=== PATIENT | male | born 1945 | race African-American/Black ===

== ENCOUNTER → 2016-11-21 | Outpatient (CLI) | payer MEDICARE, OTHER ==
[2016-10-26 14:42] VITALS: BP 132/93
[~2016-11-21] MED LIST: ALPR0.5T6 PO; AMLO5TAB2 PO; APIX2.5T PO; ASPI-482 PO; ASPI325T4 PO; EZET10TA3 PO; FAMO-63 PO; FAMO20TA5; FENT1PAT17 TD; FERR-26 PO; FURO-68 PO; INSU100C4 SQ; INSU100I13 SQ; INSU100I17 SQ; INSU100V8 SQ; ISOS30TA PO; ISOS30TA4; ISOS30TA4 PO; LIPA1CAP4 PO; LISI-334 PO; LORA0.5T96 PO; METO-269 PO; METO10TA81 PO; METO50TA10; ONDA8TAB9 PO; OXYC-323 PO; OXYC30TA PO; OXYC30TA64 PO; OXYC5TAB88 PO; PANT40TA3 PO; POTA10CA PO; POTA10TA5 PO; PROC10TA57 PO; SIMV10TA3 PO; SIMV40TA3 PO
[2016-11-21 11:44] LABS: BASO % 0 % (0-3); EOS % 1 % (0-3); HEMATOCRIT 28.9 % (39.0-53.0); HEMOGLOBIN 9.5 g/dL (13.0-17.5); LYMPH # 1.8 x10^3/uL (1.0-4.8); LYMPH % 27 % (24-48); MEAN CORPUSCULAR HEMOGLOBIN 30 pg (25-35); MEAN CORPUSCULAR HGB CONC 33 g/dL (31-37); MEAN CORPUSCULAR VOLUME 92 fL (79-100); MONO % 8 % (0-9); NEUT % 64 % (31-73); PLATELET COUNT 78 x10^3/uL (140-400); RED BLOOD COUNT 3.12 x10^6/uL (4.30-5.70); RED CELL DISTRIBUTION WIDTH 18.7 % (11.5-14.5); WHITE BLOOD COUNT 6.7 x10^3/uL (4.0-11.0)
[2016-11-21 12:04] LABS: ALBUMIN 1.1 g/dL (3.4-5.0); ALBUMIN/GLOBULIN RATIO 0.2 (1.0-1.7); CREATININE 3.1 mg/dL (0.7-1.3); GFR 24.2; POTASSIUM 3.5 mmol/L (3.5-5.1); TOTAL BILIRUBIN 1.4 mg/dL (0.2-1.0); TOTAL PROTEIN 7.9 g/dL (6.4-8.2)
== END | disposition home or self-care (01) ==
LOC: SPEC 11:35
PROVIDERS: ATTEND Specialist
DX: J96.10 Chronic respiratory failure, unspecified whether with hypoxia or hypercapnia (principal); I13.0 Hypertensive heart and chronic kidney disease with heart failure and stage 1 through stage 4 chronic kidney disease, or unspecified chronic kidney disease; N18.3 Chronic kidney disease, stage 3 (moderate); I50.32 Chronic diastolic (congestive) heart failure
CPT/HCPCS: 36415; 80053; 85027

== ENCOUNTER → 2016-11-26 | Outpatient (CLI) | payer MEDICARE, OTHER ==
[2016-10-26 14:42] VITALS: BP 132/93
[2016-11-26 11:36] LABS: BASO % 0 % (0-3); EOS % 1 % (0-3); HEMATOCRIT 32.3 % (39.0-53.0); HEMOGLOBIN 10.5 g/dL (13.0-17.5); LYMPH # 2.4 x10^3/uL (1.0-4.8); LYMPH % 25 % (24-48); MEAN CORPUSCULAR HEMOGLOBIN 30 pg (25-35); MEAN CORPUSCULAR HGB CONC 32 g/dL (31-37); MEAN CORPUSCULAR VOLUME 93 fL (79-100); MONO % 8 % (0-9); NEUT % 66 % (31-73); PLATELET COUNT 71 x10^3/uL (140-400); RED BLOOD COUNT 3.49 x10^6/uL (4.30-5.70); RED CELL DISTRIBUTION WIDTH 17.7 % (11.5-14.5)
[2016-11-26 11:40] LABS: WHITE BLOOD COUNT 9.6 x10^3/uL (4.0-11.0)
[2016-11-26 11:45] LABS: ALBUMIN 1.2 g/dL (3.4-5.0); ALBUMIN/GLOBULIN RATIO 0.2 (1.0-1.7); CALCIUM 7.3 mg/dL (8.5-10.1); CREATININE 2.8 mg/dL (0.7-1.3); GFR 27.2; POTASSIUM 3.9 mmol/L (3.5-5.1); TOTAL PROTEIN 8.4 g/dL (6.4-8.2)
== END | disposition home or self-care (01) ==
LOC: SPEC 11:16
PROVIDERS: ATTEND Specialist
DX: I13.0 Hypertensive heart and chronic kidney disease with heart failure and stage 1 through stage 4 chronic kidney disease, or unspecified chronic kidney disease (principal); I50.32 Chronic diastolic (congestive) heart failure; J96.11 Chronic respiratory failure with hypoxia; J44.9 Chronic obstructive pulmonary disease, unspecified
CPT/HCPCS: 36415; 80053; 85027

== ENCOUNTER 2016-12-05 17:04 | Inpatient (IN) | payer MEDICARE, OTHER ==
[~2016-12-05] VITALS: Ht 170.2 cm; Wt 77.0 kg
[2016-12-05] MEDS: IPRATRPIUM/ALBUTEROL 0.5/2.5MG 3 ML NEBU. NEB SCH (11:49)
[2016-12-05 18:21] LABS: HCO3 ABG 23 mmol/L (21-28); PCO2 ABG 40 mmHg (35-46); PH ABG 7.38 (7.35-7.45); PO2 ABG 54 mmHg (65-108); SAT O2 ABG 86 % (92-99)
[2016-12-05 18:21] LABS: HCO3 ABG 20 mmol/L (21-28); PCO2 ABG 35 mmHg (35-46); PH ABG 7.37 (7.35-7.45); PO2 ABG 57 mmHg (65-108); SAT O2 ABG 88 % (92-99)
[2016-12-05 18:22] LABS: FIO2 ABG 21
[2016-12-05 18:22] LABS: FIO2 ABG 21
[2016-12-05] MEDS ORDERED: ONDANSETRON PF 4 MG/2 ML VIAL. IV PRN (18:45)
[2016-12-05] MEDS ORDERED: AMLO5TAB2 PO (18:50)
[2016-12-05 19:08] LABS: CALCIUM 7.5 mg/dL (8.5-10.1); CREATININE 4.5 mg/dL (0.7-1.3); GFR 15.8; POTASSIUM 4.6 mmol/L (3.5-5.1)
[2016-12-05 19:14] LABS: ALBUMIN 1.1 g/dL (3.4-5.0); ALBUMIN/GLOBULIN RATIO 0.2 (1.0-1.7); TOTAL BILIRUBIN 1.2 mg/dL (0.2-1.0); TOTAL PROTEIN 8.1 g/dL (6.4-8.2)
[2016-12-05 19:22] LABS: BASO # 0.1 x10^3/uL (0.0-0.2); BASO % 1 % (0-3); EOS % 0 % (0-3); HEMATOCRIT 31.4 % (39.0-53.0); HEMOGLOBIN 10.3 g/dL (13.0-17.5); LYMPH # 2.4 x10^3/uL (1.0-4.8); LYMPH % 30 % (24-48); MEAN CORPUSCULAR HEMOGLOBIN 30 pg (25-35); MEAN CORPUSCULAR HGB CONC 33 g/dL (31-37); MEAN CORPUSCULAR VOLUME 91 fL (79-100); MONO % 11 % (0-9); NEUT % 58 % (31-73); PLATELET COUNT 60 x10^3/uL (140-400); RED BLOOD COUNT 3.45 x10^6/uL (4.30-5.70); RED CELL DISTRIBUTION WIDTH 17.9 % (11.5-14.5); WHITE BLOOD COUNT 8.1 x10^3/uL (4.0-11.0)
--- NOTE | 2016-12-05 19:22 | PHYS DOC ---
Past Medical History Past Medical History: Anemia, Anxiety, Cancer, Diabetes-Type II, GERD, High Cholesterol, Hypertension, Other Additional Past Medical Histor: pancreatic cancer. Past Surgical History: Cholecystectomy, Coronary Bypass Surgery, Other Additional Past Surgical Histo: Rebuilt pancreas. Alcohol Use: None Drug Use: None Adult General Chief Complaint Chief Complaint: SHORTNESS OF BREATH HPI HPI 71-year-old male with multiple medical problems presents secondary to abnormal oxygen saturation at home. Apparently the family checked earlier in the day and his oxygen saturation was in the 70s then checked later it was in the 90s and then checked again and it was in the 80s. They then called the patient's primary care physician who suggested the patient be brought to the emergency department for further evaluation. Patient states that as long as he is still he has really no significant symptoms. He states he does feel more comfortable sitting upright. He denies any chest pain. He has not had any fever chills or sweats. He denies any hemoptysis. [] Review of Systems Review of Systems Constitutional: Denies fever or chills [] Eyes: Denies change in visual acuity, redness, or eye pain [] HENT: Denies nasal congestion or sore throat [] Respiratory: Per history of present illness [] Cardiovascular: No additional information not addressed in HPI [] GI: Denies abdominal pain, nausea, vomiting, bloody stools or diarrhea [] : Denies dysuria or hematuria [] Musculoskeletal: Denies back pain or joint pain [] Integument: Denies rash or skin lesions [] Neurologic: Denies headache, focal weakness or sensory changes [] Endocrine: Denies polyuria or polydipsia [] Current Medications Current Medications Current Medications Medications (Trade) Dose Ordered Sig/Love Start Time Stop Time Status Last Admin Dose Admin Ondansetron HCl (Zofran) 4 mg PRN Q8HRS PRN 12/05/16 18:45 12/06/16 18:44 Allergies Allergies Allergies Coded Allergies Type Severity Reaction Last Updated Verified codeine Allergy Intermediate AMS 10/25/16 Yes Physical Exam Physical Exam Constitutional: Well developed, well nourished, no acute distress, non-toxic appearance. [] HENT: Normocephalic, atraumatic, bilateral external ears normal, oropharynx moist, no oral exudates, nose normal. [] Eyes: PERRLA, EOMI, conjunctiva normal, no discharge. [] Neck: Normal range of motion, no tenderness, supple, no stridor. [] Cardiovascular:Heart rate regular rhythm, no murmur [] Lungs & Thorax: Bilateral breath sounds clear to auscultation [] Abdomen: Bowel sounds normal, soft, no tenderness, no masses, no pulsatile masses. [] Skin: Warm, dry, no erythema, no rash. [] Back: No tenderness, no CVA tenderness. [] Extremities: No tenderness, no cyanosis, no clubbing, ROM intact, no edema. [] Neurologic: Alert and oriented X 3, normal motor function, normal sensory function, no focal deficits noted. [] Psychologic: Affect normal, judgement normal, mood normal. [] Current Patient Data Vital Signs Vital Signs Date Time Temp Pulse Resp B/P Pulse Ox O2 Delivery O2 Flow Rate FiO2 12/05/16 18:40 62 14 128/68 99 Room Air 12/05/16 17:40 2 12/05/16 17:15 98 98.0 Lab Values Laboratory Tests Test 12/05/16 17:46 12/05/16 18:05 12/05/16 18:41 O2 Saturation 86% (92-99) L 88% (92-99) L Arterial Blood pH 7.38 (7.35-7.45) 7.37 (7.35-7.45) Arterial Blood pCO2 at Patient Temp 40mmHg (35-46) 35mmHg (35-46) Arterial Blood pO2 at Patient Temp 54mmHg (65-108) L 57mmHg (65-108) L Arterial Blood HCO3 23mmol/L (21-28) 20mmol/L (21-28) L Arterial Blood Base Excess -2mmol/L (-3-3) -5mmol/L (-3-3) L FiO2 21 21 White Blood Count 8.1x10^3/uL (4.0-11.0) Red Blood Count 3.45x10^6/uL (4.30-5.70) L Hemoglobin 10.3g/dL (13.0-17.5) L Hematocrit 31.4% (39.0-53.0) L Mean Corpuscular Volume 91fL (79-100) Mean Corpuscular Hemoglobin 30pg (25-35) Mean Corpuscular Hemoglobin Concent 33g/dL (31-37) Red Cell Distribution Width 17.9% (11.5-14.5) H Platelet Count 60x10^3/uL (140-400) L Neutrophils (%) (Auto) 58% (31-73) Lymphocytes (%) (Auto) 30% (24-48) Monocytes (%) (Auto) 11% (0-9) H Eosinophils (%) (Auto) 0% (0-3) Basophils (%) (Auto) 1% (0-3) Neutrophils # (Auto) 4.7x10^3uL (1.8-7.7) Lymphocytes # (Auto) 2.4x10^3/uL (1.0-4.8) Monocytes # (Auto) 0.9x10^3/uL (0.0-1.1) Eosinophils # (Auto) 0.0x10^3/uL (0.0-0.7) Basophils # (Auto) 0.1x10^3/uL (0.0-0.2) Sodium Level 141mmol/L (136-145) Potassium Level 4.6mmol/L (3.5-5.1) Chloride Level 109mmol/L (98-107) H Carbon Dioxide Level 26mmol/L (21-32) Anion Gap 6 (6-14) Blood Urea Nitrogen 37mg/dL (8-26) H Creatinine 4.5mg/dL (0.7-1.3) H Estimated GFR (Cockcroft-Gault) 15.8 BUN/Creatinine Ratio 8 (6-20) Glucose Level 126mg/dL (70-99) H Calcium Level 7.5mg/dL (8.5-10.1) L Total Bilirubin 1.2mg/dL (0.2-1.0) H Aspartate Amino Transferase (AST) 64U/L (15-37) H Alanine Aminotransferase (ALT) 23U/L (16-63) Alkaline Phosphatase 89U/L (46-116) Troponin I Quantitative 0.092ng/mL (0.000-0.055) SL-Wfy-[id number]-Type Natriuretic Peptide 5787pg/mL (0-124) H Total Protein 8.1g/dL (6.4-8.2) Albumin 1.1g/dL (3.4-5.0) L Albumin/Globulin Ratio 0.2 (1.0-1.7) L Laboratory Tests 12/05/16 18:41 Laboratory Tests 12/05/16 18:41 EKG EKG [EKG: Atrial flutter rate is [address]-T changes] Radiology/Procedures Radiology/Procedures [] Impressions: Chest x-ray: Pleural effusion on the right there is increased vascular congestion consistent with congestive heart failure as interpreted by me Course & Med Decision Making Course & Med Decision Making Pertinent Labs and Imaging studies reviewed. (See chart for details) [ED course: Evaluation reveals a 71-year-old chronically ill male in no significant distress. Interestingly patient's oxygen saturation is in the 90s however 2 separate blood gases performed at different sites showed a PO2 in the 50s. His chest x-ray was consistent with congestive heart failure and this was reinforced with a BNP of greater than 5000. I spoke with patient's primary care physician who stated that she would like him admitted to the hospital for diuresis and further medical evaluation.] Dragon Disclaimer Dragon Disclaimer This electronic medical record was generated, in whole or in part, using a voice recognition dictation system. Departure Departure Impression: Primary Impression: Congestive heart failure Disposition: ADMITTED INPATIENT Admitting Physician: Other (Dr. Rascon) Condition: GUARDED Referrals: LEISA MIJARES MD (PCP) Problem Qualifiers Primary Impression: Congestive heart failure Congestive heart failure type: unspecified congestive heart failure type Congestive heart failure chronicity: unspecified congestive heart failure chronicity Qualified Code: I50.9 - Heart failure, unspecified JOHN PAUL BERG DO Dec 05, 2016 19:22
[2016-12-05] MEDS ORDERED: FUROSEMIDE 40 MG/4 ML VIAL IVP ONE (19:45)
[2016-12-05] MEDS: IV NORMAL SALINE 1000ML BAG 1,000 ML IV SCH (22:00)
[2016-12-05] MEDS: OXYCODONE IR 30 MG TABLET. PO PRN (22:31)
[2016-12-05 22:38] VITALS: BP 129/74
[2016-12-05] MEDS ORDERED: DEXTROSE 50% 25 GM / 50ML DISP.SYRIN. IV PRN (23:15)
--- NOTE | 2016-12-05 23:29 | ACF ---
Admission Forms Criteria HEART FAILURE: COMMON COMPLICATIONS Clinical Indications for Inpatient Care (Place 'X' for any and all applicable criteria): Ongoing inpatient care may be indicated for heart failure with ANY ONE of the following (1)(2)(3)(4)(5): [ ]I. Ongoing need for care for primary condition requiring frequent therapy adjustments because of changes in cardiac function (eg, drug dosage changes for drugs that are renally metabolized) [ ]II. New-onset heart failure [ ]III. Heart failure with decreased urine output not responsive to attempts to optimize volume status [ ]IV. Acute cardiac ischemia causing or associated with failure [X]V. Complications of heart failure, including ANY ONE of the following: [ ]a) Pericardial effusion [ ]b) Symptomatic pleural effusion [X]c) O2 saturation <90% or PO2 < 60 mm Hg (8.0 kPa) on room air or require baseline supplemental O2 [ ]d) Tachypnea [ ]e) Dyspnea [ ]f) Syncope [ ]g) Change in mental status [ ]h) Acute renal insufficiency that is severe (reduction of more than 50% in estimated glomerular filtration rate from baseline) or progressive reduction of more than 25% in estimated glomerular filtration rate from baseline, with creatinine continuing to rise) [ ]i) Hemodynamic instability [ ]j) Anasarca [ ]k) Clinically significant metabolic abnormalities due to heart failure (eg, new-onset metabolic acidosis) Extended stay beyond goal length of stay for primary condition may be needed until ALL of the following are present(1)(3): [ ]a) Stable and effective diuretic regimen established (or patient on stable dialysis regimen if in chronic renal failure) [ ]b) Breathing comfortably at rest [ ]c) Saturation of arterial oxygen greater than 90% or at acceptable baseline [ ]d) Pulmonary edema absent or improved [ ]e) Hemodynamic stability [ ]f) Volume status acceptable on oral medication [ ]g) Peripheral or sacral edema absent or improved [ ]h) Renal function stable and manageable at a lower level of care [ ]i) Complications (eg, pleural effusion) resolved or manageable at a lower level of care [ ]j) Patient or caregiver has received written discharge instructions or educational material addressing activity level, diet, discharge medications, follow-up appointment, weight monitoring, and what to do if symptoms worsen The original [employer] content created by [employer] has been revised. The portions of the content which have been revised are identified through the use of italic text or in bold, and [facility] has neither reviewed nor approved the modified material.All other unmodified content is copyright [facility]. Please see references footnoted in the original [facility] edition 2016 Admission Criteria Met?: Yes YEMI DIAZ Dec 05, 2016 23:29
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
--- NOTE | 2016-12-06 06:38 | EKG ---
[facility] [address] [place] [address] Test Date: 2016-12-05 Test Time: 17:17:22 Pat Name: WILDER HEAD Department: Room: 534 1 Gender: M Molecular Biologist: : 1945 Requested By: JOHN PAUL BERG Order Number: [id number] Reading MD: Nay Rascon Measurements Intervals [place] Rate: 63 P: NM: QRS: -36 QRSD: 90 T: 110 QT: 448 QTc: 462 Interpretive Statements ATRIAL FLUTTER ABNORMAL LEFT AXIS DEVIATION LEFT ANTERIOR FASCICULAR BLOCK ABNORMAL ECG Electronically Signed On 12-07-2016 0:40:03 SKIN DIVING TEACHER by Nay Rascon
[2016-12-06] MEDS: INSULIN ASPART 300 UNITS/3 ML INSULN.PEN SQ SCH ×3 (07:30→16:30)
[2016-12-06] MEDS: IPRATRPIUM/ALBUTEROL 0.5/2.5MG 3 ML NEBU. NEB SCH ×4 (08:00→20:56)
[2016-12-06 08:24] LABS: HCO3 ABG 24 mmol/L (21-28); PCO2 ABG 40 mmHg (35-46); PO2 ABG 87 mmHg (65-108); SAT O2 ABG 96 % (92-99)
--- NOTE | 2016-12-06 08:26 | RAD ---
Indication difficulty breathing. A single view of the chest was obtained. Comparison is made to an examination 10/25/2016. Postoperative changes are noted. Bipolar cardiac pacing device and a right Port-A-Cath are noted. Heart size is unchanged. There is no gross congestive heart failure. The left lung is clear. There is persistent volume loss in the right lung compatible with pleural fluid. The amount of pleural fluid is probably slightly less than previously. Volume loss at the right lung base likely reflects passive atelectasis associated with the pleural fluid. IMPRESSION: Persistent right pleural effusion with associated volume loss. The left lung appears clear.
[2016-12-06 08:30] LABS: FIO2 ABG 50
--- NOTE | 2016-12-06 08:31 | EKG ---
[facility] [address] [place] [address] Test Date: 2016-12-06 Test Time: 08:12:27 Pat Name: WILDER HEAD Department: Room: 534 1 Gender: M Uat Tester: : 1945 Requested By: MAYRA REYNOLDS Order Number: [id number] Reading MD: Mayra Reynolds Measurements Intervals [place] Rate: 94 P: MS: QRS: -85 QRSD: 176 T: 27 QT: 386 QTc: 489 Interpretive Statements ATRIAL FLUTTER LOW LIMB LEAD VOLTAGE NON SPECIFIC INTRAVENTRICULAR BLOCK QRS(T) CONTOUR ABNORMALITY CONSIDER HIGH LATERAL INFARCT ABNORMAL ECG Electronically Signed On 12-06-2016 23:53:37 MANAGED SERVICES SALES CONSULTANT by Mayra Reynolds
[2016-12-06 09:21] VITALS: BP 133/74
[2016-12-06] MEDS ORDERED: IOHEXOL 240 MG/ML 50ML VIAL. PO ONE (10:30)
[2016-12-06] MEDS ORDERED: CONTRAST GIVEN MC PRN (10:30)
[2016-12-06] MEDS: IV NORMAL SALINE 1000ML BAG 1,000 ML IV SCH (11:20)
[2016-12-06 11:45] VITALS: BP 147/84
[2016-12-06] MEDS: ASPIRIN 81 MG TAB.CHEW PO SCH (12:35)
[2016-12-06] MEDS: ISOSORBIDE MONONITRATE ER 30 MG TAB.ER.24H PO SCH (12:35)
[2016-12-06] MEDS: FERROUS SULFATE 325 MG TABLET PO SCH (12:35)
[2016-12-06] MEDS: FAMOTIDINE 20 MG TABLET. PO SCH (12:35)
--- NOTE | 2016-12-06 14:42 | RAD ---
Indication staging pancreatic malignancy. Axial images through the chest, abdomen and pelvis were obtained. Oral contrast was administered. IV contrast was not. The chest is compared to an examination 10/02/2016. Abdomen and pelvis are compared to an examination 10/03/2016. CT chest: Findings There is diffuse soft tissue swelling compatible with a systemic process such as anasarca. There are bilateral pleural effusions right greater than left. The effusions are larger than on the previous exam. Groundglass opacities seen previously in the right upper lobe has resolved. There is, however, on the current examination a parahilar smaller groundglass opacity in the left upper lobe. A focus of inflammation would be the leading consideration accounting for this appearance. There is some volume loss at the right lung base likely reflecting passive atelectasis associated with the pleural fluid. A dominant soft tissue mass in either lung is not seen. CT abdomen and pelvis: Findings. Similar to the soft tissues of the chest wall there is soft tissue swelling compatible with a systemic process such as anasarca. There is now a significant amount of abdominal ascites much greater than on the previous exam. A definite mass in the liver or spleen is not seen but the study detecting for abdominal masses is limited as no IV contrast was administered. There has been apparent partial pancreatectomy. The adrenal glands appear unremarkable. Occasional right renal cysts are noted. A calcification is noted associated with the right kidney similar to the previous exam. An acute finding in the abdomen or pelvis is not seen. IMPRESSION: Diffuse soft tissue swelling suggesting a systemic process such as anasarca. Resolution of previously seen groundglass opacity in the right upper lobe. There is, however, a small groundglass opacity seen on today's examination in the left upper lobe. This is probably inflammatory in nature. Increasing bilateral pleural effusions right greater than left. Moderately large amount of abdominal ascites. An acute finding in the abdomen or pelvis is not seen PQRS Compliance Statement: One or more of the following individualized dose reduction techniques were utilized for this examination: 1. Automated exposure control 2. Adjustment of the mA and/or kV according to patient size 3. Use of iterative reconstruction technique
[2016-12-06 15:29] VITALS: BP 113/62
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
[2016-12-06 19:15] VITALS: BP 120/66
--- NOTE | 2016-12-06 21:27 | PDOC ---
Provider Note Provider Note 1. False results fom O2 sats of fingers Feep foot warm and use toes 2. Normal systolic function. Drade III diastolic function. 3.Bilateral pleural rffuions ?etiology ?malignant ? hypoalbuminemia ? chronic diastolic CHF 4. Severe malnuitrition Try protein shakes 5.Gastroparesis 6. Chronic kidney disease R/O obstruction See what hydration does but with bhypoalbuminemia IV fluids may not remin in intrascularly May consider diagnostic thoracentesis and/or paracentesis. Will discuss with IR. See no need for Pulm consult I have discudssed hospice with patient and wifeThey know to approach me when they are ready MAYRA REYNOLDS MD Dec 06, 2016 21:27
[2016-12-07] VITALS (7 sets, daily range): BP systolic 105–149; BP diastolic 58–87
[2016-12-07] MEDS: IV NORMAL SALINE 1000ML BAG 1,000 ML IV SCH ×3 (02:08→20:15)
[2016-12-07] MEDS: IPRATRPIUM/ALBUTEROL 0.5/2.5MG 3 ML NEBU. NEB SCH ×4 (07:07→21:57)
[2016-12-07] MEDS: INSULIN ASPART 300 UNITS/3 ML INSULN.PEN SQ SCH ×3 (07:30→17:01)
[2016-12-07 07:45] LABS: CALCIUM 6.8 mg/dL (8.5-10.1); CREATININE 3.7 mg/dL (0.7-1.3); GFR 19.7; POTASSIUM 4.1 mmol/L (3.5-5.1)
[2016-12-07] MEDS: ASPIRIN 81 MG TAB.CHEW PO SCH (09:42)
[2016-12-07] MEDS: FAMOTIDINE 20 MG TABLET. PO SCH (09:42)
[2016-12-07] MEDS: FERROUS SULFATE 325 MG TABLET PO SCH (09:42)
[2016-12-07] MEDS: ISOSORBIDE MONONITRATE ER 30 MG TAB.ER.24H PO SCH (09:43)
--- NOTE | 2016-12-07 13:04 | RAD ---
Gastric emptying nuclear medicine study Clinical indications: Weight loss. Diabetes. Loss of appetite. Technique: After oral ingestion of a solid meal containing 2.0 mCi of technetium 99m sulfur colloid, anterior planar images of the upper abdomen were performed in sequential fashion and a time/activity curve was generated. Half time gastric clearance was measured and calculated. Comparison: None available. Findings: Very little radiotracer activity is seen within the duodenum or proximal small bowel. There is no downward slope of the time/activity curve. Half time clearance had to be extrapolated and is calculated to be 261 minutes. Normal is 45-90 minutes. Therefore, there is a significant delay in gastric emptying. IMPRESSION: Significant delay in gastric emptying.
--- NOTE | 2016-12-07 13:19 | PDOC ---
Provider Note Provider Note UROLOGY: Consult dictated Plan: will start Flomax voiding trial in 48hrs FILIPPO TORRES DO Dec 07, 2016 13:19
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
[2016-12-07] MEDS: OXYCODONE IR 30 MG TABLET. PO PRN (17:09)
--- NOTE | 2016-12-07 20:13 | CARD ---
APPROVED REPORT EXAM: Two-dimensional and M-mode echocardiogram with Doppler and color Doppler. Other Information Quality : Fair INDICATION Aflutter 2D DIMENSIONS RVDd3.7 (2.9-3.5cm)Left Atrium(2D)3.9 (1.6-4.0cm) IVSd1.1 (0.7-1.1cm)Aortic Root(2D)3.1 (2.0-3.7cm) LVDd4.5 (3.9-5.9cm)LVOT Diameter2.0 (1.8-2.4cm) PWd1.0 (0.7-1.1cm)LVDs3.2 (2.5-4.0cm) FS (%) 28.8 %SV50.2 ml LVEF(%)55.7 (>50%) Aortic Valve AoV Peak Km.102.1cm/sAoV VTI18.6cm AO Peak GR.4.2mmHgLVOT VTI 15.44cm AO Mean GR.3mmHgAVA (VTI)2.62cm2 Mitral Valve MV E Zkwwipsa70.2cm/sMV E Peak Gr.4mmHg MV DECEL [id number] MVA (PHT)5.79cm2 Tricuspid Valve TR P. [id number] TR Peak Gr.[id number] LEFT VENTRICLE The left ventricle is normal size. There is borderline concentric left ventricular hypertrophy. Left ventricle systolic function is low normal. The Ejection Fraction is 50-55%. Septal motion consistent with paced rhythm. Transmitral Doppler flow pattern is Grade I-abnormal relaxation pattern. RIGHT VENTRICLE The right ventricle is normal size. The right ventricular systolic function is normal. There is a pac emaker lead in the right ventricle. ATRIA The left atrium size is normal. There is a catheter/pacemaker lead seen in the right atrium. The righ t atrium is mildly dilated. The interatrial septum is intact with no evidence for an atrial septal de fect or patent foramen ovale as noted on 2-D or Doppler imaging. AORTIC VALVE The aortic valve is mildly thickened but opens well. The aortic valve is tri-cuspid. Doppler and [place] r Flow revealed no significant aortic regurgitation. There is no significant aortic valvular stenosis . MITRAL VALVE The mitral valve is mildly thickened but opens well. Mitral annular calcification is mild. There is n o evidence of mitral valve prolapse. There is no mitral valve stenosis. Doppler and Color Flow reveal ed mild mitral regurgitation. TRICUSPID VALVE The tricuspid valve is normal in structure. Doppler and Color Flow revealed mild to moderate tricuspi d regurgitation. There is moderate-severe pulmonary hypertension. The PA pressure was estimated at 60 mmHg. There is no tricuspid valve stenosis. PULMONIC VALVE The pulmonary valve is normal in structure and function. Doppler and Color Flow revealed mild pulmoni c valvular regurgitation. There is no pulmonic valvular stenosis. GREAT VESSELS The aortic root is normal in size. The IVC is borderline dilated and collapses >50% with inspiration. PERICARDIAL EFFUSION There is a trace pericardial effusion. Critical Notification Critical Value: No <Conclusion> The left ventricle is normal size. There is borderline concentric left ventricular hypertrophy. The ejection fraction is normal at 50-55% There is a Grade III diastolic dysfunction with the Ewave decekeration time of 122msecs. There is a trace pericardial effusion. There is no significant aortic valvular stenosis. Doppler and Color Flow revealed no significant aortic regurgitation. There is no mitral valve stenosis. Doppler and Color Flow revealed mild mitral regurgitation. The left atrium is of a normal size The right ventricle is normal Doppler and Color Flow revealed mild to moderate tricuspid regurgitation. There is moderate-severe pulmonary hypertension. The PA pressure was estimated at 60 mmHg There is thus moderate pulmonary hypertension Doppler and Color Flow revealed mild pulmonic valvular regurgitation.
[2016-12-07] MEDS: TAMSULOSIN 0.4 MG CAP.ER.24H. PO SCH (20:15)
[2016-12-07] MEDS: METOCLOPRAMIDE HCL 10 MG/10 ML SOLUTION. PO SCH (20:16)
--- NOTE | 2016-12-07 20:44 | PDOC ---
Provider Note Provider Note Ffers no complaints Urinary retention of 600ccs. post void Finnegan introduced. Imorovement in creatinine probably due to hydration. [place] to ge attributed to bladder drainage. Prolonged GET Srat on Reglan MAYRA REYNOLDS MD Dec 07, 2016 20:44
[2016-12-07] MEDS ORDERED: ALBUMIN HUMAN 5% 250 ML IV ONE (21:00)
[2016-12-08] MEDS ORDERED: DILTIAZEM HCL 30 MG TABLET PO PRN (00:30)
[2016-12-08] MEDS ORDERED: ACETAMINOPHEN 325 MG TABLET. PO PRN (00:30)
[2016-12-08] MEDS ORDERED: METOPROLOL TART IMMED RELEASE 25 MG TABLET PO ONE (01:00)
[2016-12-08] MEDS: OXYCODONE IR 30 MG TABLET. PO PRN (01:05)
[2016-12-08 01:44] LABS: BASO % 0 % (0-3); EOS % 0 % (0-3); HEMATOCRIT 28.4 % (39.0-53.0); HEMOGLOBIN 9.1 g/dL (13.0-17.5); LYMPH # 3.2 x10^3/uL (1.0-4.8); LYMPH % 27 % (24-48); MEAN CORPUSCULAR HEMOGLOBIN 30 pg (25-35); MEAN CORPUSCULAR HGB CONC 32 g/dL (31-37); MEAN CORPUSCULAR VOLUME 93 fL (79-100); MONO % 13 % (0-9); NEUT % 59 % (31-73); PLATELET COUNT 62 x10^3/uL (140-400); RED BLOOD COUNT 3.08 x10^6/uL (4.30-5.70); RED CELL DISTRIBUTION WIDTH 17.9 % (11.5-14.5); WHITE BLOOD COUNT 11.7 x10^3/uL (4.0-11.0)
[2016-12-08 01:48] LABS: ALBUMIN 1.4 g/dL (3.4-5.0); ALBUMIN/GLOBULIN RATIO 0.2 (1.0-1.7); CALCIUM 7.1 mg/dL (8.5-10.1); CREATININE 3.4 mg/dL (0.7-1.3); GFR 21.8; POTASSIUM 4.1 mmol/L (3.5-5.1); TOTAL BILIRUBIN 1.3 mg/dL (0.2-1.0); TOTAL PROTEIN 8.3 g/dL (6.4-8.2)
[2016-12-08 02:00] VITALS: BP 165/96
--- NOTE | 2016-12-08 02:49 | CONS ---
DATE OF CONSULTATION: 12/07/2016 CHIEF COMPLAINT: Post-void urinary retention. HISTORY OF PRESENT ILLNESS: This is a 71-year-old male with multiple medical problems. He was hospitalized due to shortness of breath. During his hospital course, he was found to have large postvoid residual urine volume of about 700 mL. Therefore, catheter was placed. The patient denies any history of prostate problems. He has had no prostate surgery. He does state that at home he has nocturia three times a night. He states he feels like he has a good stream and feels like he empties the bladder completely. PAST MEDICAL HISTORY: Significant for pancreatic cancer, type 2 diabetes, GERD, hypertension. PAST SURGICAL HISTORY: Includes cholecystectomy, coronary artery bypass surgery, biopsies of the pancreas. ALLERGIES: THE PATIENT IS ALLERGIC TO CODEINE. PAST MEDICAL HISTORY: Reviewed and updated. The patient also has a history of abdominal ascites. PHYSICAL EXAMINATION: GENERAL DESCRIPTION: A 71-year-old black male, not a very good historian. He denies any pain or discomfort. ABDOMEN: Obese and compatible with ascites. There is no flank pain to palpation bilaterally. No suprapubic tenderness. GENITALIA: Noncircumcised penis. He has indwelling Finnegan catheter draining mya colored urine. RECTAL: Not performed at this time. MUSCULOSKELETAL: Mild edema of lower extremities. LABORATORY DATA: The patient's hemoglobin 10.3, hematocrit 31.4, platelets are low at 60,000. The patient's most recent BUN is 37, creatinine is 3.7. X-RAY STUDIES: No x-rays pertinent to system. IMPRESSION: 1. Urinary retention-acute versus chronic. 2. Renal failure (chronic kidney disease). 3. Pancreatic cancer. 4. History of hepatitis. PLAN: 1. I have started the patient on Flomax one tablet p.o. at bedtime. 2. After has been on Flomax for approximately two days, I would remove the Finnegan catheter in the morning and give him a voiding trial and follow his postvoid residual urine volumes. 3. If he continues to have problems, then we will schedule him for flexible cystoscopy in the office. Thank you for the opportunity to participate in care of this patient. FILIPPO TORRES DO DR: GAYE/martin JOB#: [id number] / [id number]
[2016-12-08] MEDS: IPRATRPIUM/ALBUTEROL 0.5/2.5MG 3 ML NEBU. NEB SCH ×4 (07:37→18:20)
[2016-12-08 07:53] VITALS: BP 116/70
--- NOTE | 2016-12-08 08:01 | RAD ---
Portable chest, 12/08/2016: History: Shortness of breath, elevated white blood cell count Comparison is made to a study from 12/05/2016. A left-sided transvenous pacemaker is again noted. The right Port-A-Cath extends to the level of the atriocaval junction. There is been a previous median sternotomy. Postsurgical changes are noted in the lower cervical spine. The heart appears to be within normal limits in size. The pulmonary vascularity is at the upper limits of normal. There is a moderate-sized persistent right pleural effusion with underlying right basilar atelectasis/infiltrate. There is a small amount of left-sided pleural fluid. The basilar findings have worsened slightly. There is no evidence of pneumothorax. IMPRESSION: Slight interval worsening of the pleural effusions, right greater than left, with moderate underlying right basilar atelectasis/infiltrate.
[2016-12-08] MEDS: ASPIRIN 81 MG TAB.CHEW PO SCH (09:06)
[2016-12-08] MEDS: ISOSORBIDE MONONITRATE ER 30 MG TAB.ER.24H PO SCH (09:06)
[2016-12-08] MEDS: METOPROLOL SUCC 24HR ER 50 MG TAB.ER.24H. PO SCH (09:06)
[2016-12-08] MEDS: FERROUS SULFATE 325 MG TABLET PO SCH (09:06)
[2016-12-08] MEDS: FAMOTIDINE 20 MG TABLET. PO SCH (09:07)
[2016-12-08] MEDS: METOCLOPRAMIDE HCL 10 MG/10 ML SOLUTION. PO SCH ×4 (09:07→20:56)
[2016-12-08] MEDS: INSULIN ASPART 300 UNITS/3 ML INSULN.PEN SQ SCH ×3 (09:08→16:30)
[2016-12-08 10:42] VITALS: BP 112/78
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
[2016-12-08 13:06] LABS: BILIRUBIN,URINE SMALL (NEG); GLUCOSE,URINE NEGATIVE (NEG); NITRITE,URINE NEGATIVE (NEG); PH,URINE 5.5; PROTEIN,URINE 100 mg/dL (NEG-TRACE)
--- NOTE | 2016-12-08 13:21 | PDOC ---
Provider Note Provider Note Febrile illness with a temp of 100. Source unknown ID cosulted Today he is better and is able tp answer question. Laqst night he was very restless and was unable to answer questions CT Head in 11/03 was unremarkable Very porr appetite He barely ate dinner last night or breakfast this morning Abdomen is distended. Obtain sonogram to evaluate ascites He wishes to be out bed and ambulate. Will request Nursing Staff to help Creat is 3.4 MAYRA REYNOLDS MD Dec 08, 2016 13:21
[2016-12-08 13:24] LABS: BACTERIA,URINE MANY /HPF (0-FEW); RBC,URINE TNTC /HPF (0-2); WBC,URINE TNTC /HPF (0-4)
--- NOTE | 2016-12-08 13:52 | RAD ---
Abdominal ultrasound, 12/08/2016: History: Elevated liver function test The gallbladder is surgically absent. The common hepatic duct is dilated measuring 1.4 cm. No hepatic mass is seen. The pancreatic region is obscured by overlying bowel. There is a given history of previous pancreatic surgery. The spleen is within normal limits in size. There is a 1.7 cm cyst in the right kidney. The lower pole of the right kidney was not fully visualized due to overlying bowel. The left kidney is unremarkable. The aorta and inferior vena cava were largely obscured by bowel. There is a moderate volume of ascites. A similar amount of fluid was visualized on the 12/06/2016 CT study. Small bilateral pleural effusions are also noted. IMPRESSION: 1. Status post cholecystectomy. 2. Enlargement of the common hepatic duct. 3. Small right renal cyst. 4. Moderate volume of ascites. 5. Small bilateral pleural effusions
[2016-12-08 14:39] VITALS: BP 107/68
[2016-12-08] MEDS: DRONABINOL 2.5 MG CAPSULE PO SCH (16:53)
[2016-12-08] MEDS: PIPERACILLIN/TAZOBACTAM 2.25 GM in IV NORMAL SALINE 50ML 50 ML IV SCH ×2 (18:12→21:43)
[2016-12-08 18:54] LABS: OBC FLU VALID
[2016-12-08 19:17] VITALS: BP 111/72
--- NOTE | 2016-12-08 20:15 | PDOC2 ---
NEUROLOGY CONSULT Date of Admission Date of Admission Full Report Dictated DATE: 12/08/16 TIME: 20:13 Current Medications Current Medications Current Medications Ondansetron HCl (Zofran) 4 mg PRN Q8HRS PRN IV NAUSEA/VOMITING; Start 12/05/16 at 18:45; Stop 12/06/16 at 18:45; Status DC Furosemide 80 mg 80 mg 1X ONCE IVP Last administered on 12/05/16 19:55; Start 12/05/16 at 19:45; Stop 12/05/16 at 19:46; Status DC Sodium Chloride (Iv Sodium Chloride 0.9% 1000ml Bag) 1,000 ml @ 75 mls/hr [id number] IV Last administered on 12/07/16 20:15; Start 12/05/16 at 22:00; Stop 12/07/16 at 20:50; Status DC Albuterol/ Ipratropium (Duoneb) 3 ml RTQID NEB Last administered on 12/08/16 18:20; Start 12/05/16 at 23:00 Oxycodone HCl (Roxicodone) 30 mg PRN Q4HRS PRN PO SEVERE PAIN Last administered on 12/08/16 01:05; Start 12/05/16 at 22:15 Aspirin (Children'S Aspirin) 81 mg DAILYWBKFT PO Last administered on 09:06; Start 12/06/16 at 08:00 Famotidine (Pepcid) 20 mg DAILY PO Last administered on 12/08/16 09:07; Start 12/06/16 at 09:00 Ferrous Sulfate (Feosol) 325 mg DAILYWBKFT PO Last administered on 12/08/16 09 :06; Start 12/06/16 at 08:00 Insulin Aspart (Novolog) 6 units TIDAC SQ Last administered on 12/08/16 09:08 ; Start 12/06/16 at 07:30 Isosorbide Mononitrate (Imdur) 30 mg DAILY PO Last administered on 12/08/16 09 :06; Start 12/06/16 at 09:00 Dextrose 12.5 gm PRN Q15MIN PRN IV SEE COMMENTS; Start 12/05/16 at 23:15 Iohexol (Omnipaque 240 Mg/ml) 30 ml 1X ONCE PO Last administered on 12/06/16 11:43; Start 12/06/16 at 10:30; Stop 12/06/16 at 10:31; Status DC Info (Do NOT chart on this entry -- for MONITORING) 1 each PRN DAILY PRN MC SEE COMMENTS; Start 12/06/16 at 10:30; Stop 12/08/16 at 10:29; Status DC Tamsulosin HCl (Flomax) 0.4 mg QHS PO Last administered on 12/07/16 20:15; Start 12/07/16 at 21:00 Metoclopramide HCl 5 mg 5 mg TIDACHC PO Last administered on 12/08/16 16:53; Start 12/07/16 at 21:00 Albumin Human (Plasmanate) 250 ml @ 62.5 mls/hr 1X ONCE IV Last administered on 12/07/16 21:16; Start 12/07/16 at 21:00; Stop 12/08/16 at 00:59; Status DC Acetaminophen (Tylenol) 325 mg PRN Q6HRS PRN PO MILD PAIN / TEMP; Start at 00:30 Metoprolol Tartrate (Lopressor) 25 mg 1X ONCE PO Last administered on 00:59; Start 12/08/16 at 01:00; Stop 12/08/16 at 01:01; Status DC Metoprolol Succinate (Toprol Xl) 50 mg DAILY PO Last administered on 12/08/16 09:06; Start 12/08/16 at 09:00 Diltiazem HCl (Cardizem) 30 mg PRN Q6HRS PRN PO ELEVATED BP, SEE COMMENTS; Start 12/08/16 at 00:30 Dronabinol 2.5 mg 2.5 mg BIDACLD PO Last administered on 12/08/16 16:53; Start 12/08/16 at 16:30 Piperacillin Sod/ Tazobactam Sod/ Sodium Chloride (Zosyn/Iv Sodium Chloride 0.9 % 50ml) 50 ml @ 100 mls/hr Q8HRS IV Last administered on 12/08/16 18:12; Start 12/08/16 at 18:00 Active Scripts Active Lasix (Furosemide) 40 Mg Tablet 1 Tab PO DAILY Reported Amlodipine Besylate 5 Mg Tablet 5 Mg PO DAILY Oxycodone Hcl 30 Mg Tablet 1 Tab PO Q4HRS Isosorbide Mononitrate Er (Isosorbide Mononitrate) 30 Mg Tab.er.24h 1 Tab PO DAILY Pepcid (Famotidine) 20 Mg Tablet 20 Mg PO BID Novolog Flexpen (Insulin Aspart) 100 Unit/1 Ml Insuln.pen 6 Unit SQ TIDAC Percocet 5-325 Mg Tablet (Oxycodone/Acetaminophen) 1 Each Tablet 1 Tab PO Q8HRS PRN Metoprolol Succinate 50 Mg Tab.er.24h Isosorbide Mononitrate Er (Isosorbide Mononitrate) 30 Mg Tab.er.24h 30 Mg Reglan (Metoclopramide Hcl) 10 Mg Tablet 10 Mg PO QIDACHS Toprol Xl (Metoprolol Succinate) 50 Mg Tab.er.24h 1 Tab PO BID Aspir 81 (Aspirin) 81 Mg Tablet.dr 1 Tab PO DAILY Imdur (Isosorbide Mononitrate) 30 Mg Tab.er.24h 30 Mg PO DAILY Ferrous Sulfate 325 Mg Tablet 325 Mg PO DAILY Allergies Allergies: Coded Allergies: codeine (Verified Allergy, Intermediate, AMS, 10/25/16) Vitals VITALS Vital Signs Date Time Temp Pulse Resp B/P Pulse Ox O2 Delivery O2 Flow Rate FiO2 12/08/16 19:24 Nasal Cannula 2.0 12/08/16 14:39 98.5 81 20 107/68 92 98.5 Labs Labs Laboratory Tests Test 12/06/16 20:51 12/07/16 07:24 12/07/16 12:05 12/07/16 16:39 Glucose (Fingerstick) 145mg/dL (70-99) 179mg/dL (70-99) 163mg/dL (70-99) Sodium Level 142mmol/L (136-145) Potassium Level 4.1mmol/L (3.5-5.1) Chloride Level 110mmol/L (98-107) Carbon Dioxide Level 25mmol/L (21-32) Anion Gap 7 (6-14) Blood Urea Nitrogen 37mg/dL (8-26) Creatinine 3.7mg/dL (0.7-1.3) Estimated GFR (Cockcroft-Gault) 19.7 Glucose Level 157mg/dL (70-99) Calcium Level 6.8mg/dL (8.5-10.1) Test 12/07/16 20:10 12/08/16 01:15 12/08/16 07:55 12/08/16 10:48 Glucose (Fingerstick) 118mg/dL (70-99) 150mg/dL (70-99) 99mg/dL (70-99) White Blood Count 11.7x10^3/uL (4.0-11.0) Red Blood Count 3.08x10^6/uL (4.30-5.70) Hemoglobin 9.1g/dL (13.0-17.5) Hematocrit 28.4% (39.0-53.0) Mean Corpuscular Volume 93fL (79-100) Mean Corpuscular Hemoglobin 30pg (25-35) Mean Corpuscular Hemoglobin Concent 32g/dL (31-37) Red Cell Distribution Width 17.9% (11.5-14.5) Platelet Count 62x10^3/uL (140-400) Neutrophils (%) (Auto) 59% (31-73) Lymphocytes (%) (Auto) 27% (24-48) Monocytes (%) (Auto) 13% (0-9) Eosinophils (%) (Auto) 0% (0-3) Basophils (%) (Auto) 0% (0-3) Neutrophils # (Auto) 6.9x10^3uL (1.8-7.7) Lymphocytes # (Auto) 3.2x10^3/uL (1.0-4.8) Monocytes # (Auto) 1.5x10^3/uL (0.0-1.1) Eosinophils # (Auto) 0.0x10^3/uL (0.0-0.7) Basophils # (Auto) 0.0x10^3/uL (0.0-0.2) Sodium Level 143mmol/L (136-145) Potassium Level 4.1mmol/L (3.5-5.1) Chloride Level 109mmol/L (98-107) Carbon Dioxide Level 19mmol/L (21-32) Anion Gap 15 (6-14) Blood Urea Nitrogen 35mg/dL (8-26) Creatinine 3.4mg/dL (0.7-1.3) Estimated GFR (Cockcroft-Gault) 21.8 BUN/Creatinine Ratio 10 (6-20) Glucose Level 143mg/dL (70-99) Calcium Level 7.1mg/dL (8.5-10.1) Total Bilirubin 1.3mg/dL (0.2-1.0) Aspartate Amino Transf (AST/SGOT) 68U/L (15-37) Alanine Aminotransferase (ALT/SGPT) 20U/L (16-63) Alkaline Phosphatase 95U/L (46-116) Total Protein 8.3g/dL (6.4-8.2) Albumin 1.4g/dL (3.4-5.0) Albumin/Globulin Ratio 0.2 (1.0-1.7) Procalcitonin 1.13ng/mL (0.00-0.10) Test 12/08/16 12:30 12/08/16 16:52 12/08/16 17:50 Urine Collection Type Unknown Urine Color Elena Urine Clarity Cloudy Urine pH 5.5 Urine Specific [place] 1.020 Urine Protein 100mg/dL (NEG-TRACE) Urine Glucose (UA) Negativemg/dL (NEG) Urine Ketones (Stick) Negativemg/dL (NEG) Urine Blood Large (NEG) Urine Nitrite Negative (NEG) Urine Bilirubin Small (NEG) Urine Urobilinogen Dipstick 1.0mg/dL (0.2 mg/dL) Urine Leukocyte Esterase Large (NEG) Urine RBC Tntc/HPF (0-2) Urine WBC Tntc/HPF (0-4) Urine Bacteria Many/HPF (0-FEW) Urine Hyaline Casts Many/HPF Glucose (Fingerstick) 91mg/dL (70-99) Influenza Type A Antigen Negative (NEGATIVE) Influenza Type B Antigen Negative (NEGATIVE) Laboratory Tests Test 12/08/16 01:15 12/08/16 07:55 12/08/16 10:48 12/08/16 12:30 White Blood Count 11.7x10^3/uL (4.0-11.0) Red Blood Count 3.08x10^6/uL (4.30-5.70) Hemoglobin 9.1g/dL (13.0-17.5) Hematocrit 28.4% (39.0-53.0) Mean Corpuscular Volume 93fL (79-100) Mean Corpuscular Hemoglobin 30pg (25-35) Mean Corpuscular Hemoglobin Concent 32g/dL (31-37) Red Cell Distribution Width 17.9% (11.5-14.5) Platelet Count 62x10^3/uL (140-400) Neutrophils (%) (Auto) 59% (31-73) Lymphocytes (%) (Auto) 27% (24-48) Monocytes (%) (Auto) 13% (0-9) Eosinophils (%) (Auto) 0% (0-3) Basophils (%) (Auto) 0% (0-3) Neutrophils # (Auto) 6.9x10^3uL (1.8-7.7) Lymphocytes # (Auto) 3.2x10^3/uL (1.0-4.8) Monocytes # (Auto) 1.5x10^3/uL (0.0-1.1) Eosinophils # (Auto) 0.0x10^3/uL (0.0-0.7) Basophils # (Auto) 0.0x10^3/uL (0.0-0.2) Sodium Level 143mmol/L (136-145) Potassium Level 4.1mmol/L (3.5-5.1) Chloride Level 109mmol/L (98-107) Carbon Dioxide Level 19mmol/L (21-32) Anion Gap 15 (6-14) Blood Urea Nitrogen 35mg/dL (8-26) Creatinine 3.4mg/dL (0.7-1.3) Estimated GFR (Cockcroft-Gault) 21.8 BUN/Creatinine Ratio 10 (6-20) Glucose Level 143mg/dL (70-99) Calcium Level 7.1mg/dL (8.5-10.1) Total Bilirubin 1.3mg/dL (0.2-1.0) Aspartate Amino Transf (AST/SGOT) 68U/L (15-37) Alanine Aminotransferase (ALT/SGPT) 20U/L (16-63) Alkaline Phosphatase 95U/L (46-116) Total Protein 8.3g/dL (6.4-8.2) Albumin 1.4g/dL (3.4-5.0) Albumin/Globulin Ratio 0.2 (1.0-1.7) Procalcitonin 1.13ng/mL (0.00-0.10) Glucose (Fingerstick) 150mg/dL (70-99) 99mg/dL (70-99) Urine Collection Type Unknown Urine Color Elena Urine Clarity Cloudy Urine pH 5.5 Urine Specific [place] 1.020 Urine Protein 100mg/dL (NEG-TRACE) Urine Glucose (UA) Negativemg/dL (NEG) Urine Ketones (Stick) Negativemg/dL (NEG) Urine Blood Large (NEG) Urine Nitrite Negative (NEG) Urine Bilirubin Small (NEG) Urine Urobilinogen Dipstick 1.0mg/dL (0.2 mg/dL) Urine Leukocyte Esterase Large (NEG) Urine RBC Tntc/HPF (0-2) Urine WBC Tntc/HPF (0-4) Urine Bacteria Many/HPF (0-FEW) Urine Hyaline Casts Many/HPF Test 12/08/16 16:52 12/08/16 17:50 Glucose (Fingerstick) 91mg/dL (70-99) Influenza Type A Antigen Negative (NEGATIVE) Influenza Type B Antigen Negative (NEGATIVE) Assessment/Plan Assessment/Plan Cassius Mckeon is a pleasant 71-year-old man with a complex medical history including pancreatic cancer diagnosed 3 years ago, coronary artery disease, chronic renal failure, liver disease, ascites, pleural effusions and encephalopathy. The neurologic exam revealed the possibility of a right visual field loss. There was drooping of the right face and rest but not with activation. I would like to rule out stroke with a CT scan of the head without contrast. He has a urinary tract infection which may be contributing to the encephalopathy. BREA BEARD MD Dec 08, 2016 20:15
[2016-12-08] MEDS: TAMSULOSIN 0.4 MG CAP.ER.24H. PO SCH (20:57)
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
[2016-12-08 23:15] VITALS: BP 121/73
--- NOTE | 2016-12-09 00:05 | CONS ---
DATE OF CONSULTATION: 12/08/2016 REFERRING PHYSICIAN: Dr. Rascon. REASON FOR CONSULTATION: Altered mental status. HISTORY OF PRESENT ILLNESS: The patient is a 71-year- old man with an extremely complex medical history. This is obtained through the medical records, which I reviewed. He was diagnosed with pancreatic cancer 3 years ago, undergoing chemotherapy with Gemzar. He reached his tolerance and had to stop this mid last year. He has had other chemotherapy including cyclosporine, but it was discontinued because of renal failure. He has also had some worsening renal function and congestive heart failure. He has had elevated liver enzymes as well. The renal failure is starting to improve and the liver enzymes are normalizing. Cancer markers are actually improving. He cannot have a contrasted study because of chronic renal failure, so by the CAT scan which is suboptimal of his abdomen and pelvis, there has been no definite recurrence or progression of his disease. There is no reported history of stroke. He does have coronary artery disease having undergone 5-vessel bypass surgery. He has also had atrial flutter about a year ago. He was not converted. I am asked to evaluate because there has been a change in his mental status or he is very confused and sleepy. In review of records, this occurred late last year as well and resolved. PAST MEDICAL HISTORY: 1. Coronary artery disease, status post bypass surgery. 2. Pancreatic cancer diagnosed 3 years ago. 3. Pulmonary fibrosis possibly from chemotherapy. 5. Chronic renal failure. 6. Chronic pain for which he is maintained on chronic narcotic analgesics. 7. Diabetes. 8. History of atrial flutter. 9. Hypoxemia or hypoxia. ALLERGIES: CODEINE. MEDICATIONS PRIOR TO ADMISSION: Include amlodipine 5 mg, aspirin 81 mg, Famotidine 20 mg twice per day, iron sulfate 325 mg, Lasix 40 mg twice a day, Imdur 30 mg twice per day, metoprolol 50 mg twice per day, oxycodone 30 mg every 4 hours, NovoLog insulin and Lantus. He was having episodes of hypoglycemia, so Lantus was discontinued. SOCIAL HISTORY: He is . He is retired. He has children and grandchildren. He does not smoke tobacco, drink alcohol or use recreational drugs. FAMILY HISTORY: Pertinent for coronary artery disease. REVIEW OF SYSTEMS: The patient is not able to give review of systems. Family members are not available. PHYSICAL EXAMINATION: VITAL SIGNS: The blood pressure was 107/68, pulse 81, respirations 20, temperature 98.5 degrees Fahrenheit. Oximetry was 92% on 2 liters nasal cannula. His weight was 173.4 pounds, height 67 inches with a calculated body mass index of 27.2. GENERAL: He was sitting in a reclining chair, initially sleeping. He awoke easily and his eyes remained open. He eyes did not focus well. He was not able to answer any questions, although acted like he was thinking about the answer, but never cane to it. He was able to follow some commands, but had difficulty with focus. Attention and concentration were extremely impaired. He was not oriented in the slightest. He appeared well groomed and well nourished. NEUROLOGIC: Examination of the cranial nerves revealed visual barnes responded to threat. He blinked better on his left visual field than the right. Extraocular movements were intact. At times the eyes were disconjugate with left eye drifting outward. He was able to follow my finger. Facial sensation was intact. Muscles of mastication were powerful symmetrically. There was a right facial droop. With smile, however the right side of the face seemed to activate fairly well. Tongue was midline. Mucous membranes appear dry. Muscle bulk was symmetric. He did not have spasticity or rigidity. Power effort was very limited. Power appeared symmetric with the arms held in the air. 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 He was able to move ankles, knees and raise legs slightly, but power was generally diminished. Reflexes were 2/4 in the upper extremities and at the knees, absent at the ankles. Toes were not upgoing. Coordination testing was difficult due to lack of attention. He could touch his nose with the finger of his right hand, but I could not get him to do it with the left. He was simply not able to attend. Sensory exam was intact to nail bed pressure in all extremities. He could also perceive cold thermal. Gait was not testable. Auscultation of the carotid arteries did not reveal a bruit. Heart rhythm was regular without a murmur. Peripheral pulses were symmetric in the arms, diminished in the feet. There was edema in the calves and feet. LABORATORY DATA: CBC revealed an elevated white count of 11.7 with low hemoglobin of 9.1, hematocrit 28.4 and platelet count 62. Chemistries revealed normal sodium and potassium today. Chloride was 109, CO2 was 19. BUN was elevated at 35. Creatinine was 3.4 with a calculated GFR of 21.8. Glucose was elevated at 143. Calcium was low at 7.1, albumin at 1.4 and total protein was elevated at 8.3. Total bilirubin was 1.3, SGOT was 68 and SGPT 20. Influenza screening was negative. Urinalysis performed today revealed a large amount of blood, small amount of bilirubin, 1 urobilinogen, large amount of leukocyte esterase, and white and red cells too numerous to count and many bacteria and hyaline casts. An ultrasound of the abdomen revealed a moderate amount of ascites and small pleural effusions. Chest x-ray revealed worsening of pleural effusions, right greater than left with moderate underlying right basilar atelectasis/infiltrate. Gastric emptying study confirmed a significant delay in gastric emptying. CT of the chest and abdomen was performed. This did not reveal a soft issue mass in either lung. There was diffuse soft issue swelling suggesting a systemic process such as anasarca. There are increased bilateral pleural effusions and a moderately large amount of ____ abdominal ascites. IMPRESSION: The patient is a 71-year-old man with a complex history with pancreatic cancer, lung disease, liver disease, ascites, coronary artery disease and encephalopathy. He has evidence of urinary tract infection on the urinalysis. This may be provoking the encephalopathy in addition to his other underlying health issues. He does have a right facial droop and possibly a right visual field loss. It is difficult to know for certain as he has a difficult time attending to tasks. RECOMMENDATIONS: I will proceed with a CT scan of his head without contrast to evaluate for hemorrhage or stroke. With his chronic renal failure, we cannot do contrast. He has a pacemaker, so we cannot do an MRI. I would continue treating underlying health issues. He may need the ascites fluent drawn off to see if there are malignant cells. I appreciate being involved in his care. BREA BEARD MD DR: MAYI/martin JOB#: [id number] / [id number] EPHRAIM Godinez MD, NORMAN MD PREMSINGH, MAYRA LEON, NILO BEARD, BREA HARPER
[2016-12-09 02:49] VITALS: BP 115/66
[2016-12-09] MEDS: PIPERACILLIN/TAZOBACTAM 2.25 GM in IV NORMAL SALINE 50ML 50 ML IV SCH ×3 (05:36→21:09)
[2016-12-09] MEDS: INSULIN ASPART 300 UNITS/3 ML INSULN.PEN SQ SCH ×3 (07:30→16:30)
[2016-12-09] MEDS: IPRATRPIUM/ALBUTEROL 0.5/2.5MG 3 ML NEBU. NEB SCH ×4 (07:37→18:25)
[2016-12-09 07:50] VITALS: BP 97/52
[2016-12-09] MEDS: METOPROLOL SUCC 24HR ER 50 MG TAB.ER.24H. PO SCH (08:11)
[2016-12-09] MEDS: ASPIRIN 81 MG TAB.CHEW PO SCH (08:11)
[2016-12-09] MEDS: ISOSORBIDE MONONITRATE ER 30 MG TAB.ER.24H PO SCH (08:11)
[2016-12-09] MEDS: FAMOTIDINE 20 MG TABLET. PO SCH (08:11)
[2016-12-09] MEDS: FERROUS SULFATE 325 MG TABLET PO SCH (08:11)
[2016-12-09] MEDS: METOCLOPRAMIDE HCL 10 MG/10 ML SOLUTION. PO SCH ×4 (08:12→21:10)
[2016-12-09 09:40] LABS: ALBUMIN 0.9 g/dL (3.4-5.0); ALBUMIN/GLOBULIN RATIO 0.2 (1.0-1.7); CALCIUM 6.9 mg/dL (8.5-10.1); CREATININE 3.2 mg/dL (0.7-1.3); GFR 23.4; POTASSIUM 4.2 mmol/L (3.5-5.1); TOTAL PROTEIN 6.6 g/dL (6.4-8.2)
--- NOTE | 2016-12-09 10:24 | RAD ---
CT of the head without contrast, 12/09/2016: History: Altered mental status, possible stroke Comparison is made to a study from 10/23/2016. The ventricles are within normal limits in size. There is no shift of the midline structures. There is no evidence of acute intracranial hemorrhage or mass effect. There are minimal unchanged deep white matter lucencies compatible with chronic ischemic change. There is moderate cerebellar atrophy. There is an unchanged lucency in the posterior aspect of the right cerebellar hemisphere compatible with an old infarct. There is nearly complete opacification of both ethmoid sinuses. There is mucosal thickening with air-fluid levels in both maxillary sinuses. There is mucosal thickening in the sphenoid and frontal sinuses. IMPRESSION: 1. Mild chronic ischemic change in the deep white matter bilaterally. 4. 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 3. No acute intracranial abnormality. 4. Extensive bilateral paranasal sinusitis PQRS Compliance Statement: One or more of the following individualized dose reduction techniques were utilized for this examination: 1. Automated exposure control 2. Adjustment of the mA and/or kV according to patient size 3. Use of iterative reconstruction technique
[2016-12-09 10:49] VITALS: BP 94/61
[2016-12-09] MEDS: DRONABINOL 2.5 MG CAPSULE PO SCH ×2 (11:45→17:05)
[2016-12-09] MEDS: OXYCODONE IR 30 MG TABLET. PO PRN ×2 (11:53→21:09)
--- NOTE | 2016-12-09 13:08 | PDOC ---
Subjective: Subjective: c/o abd pain Objective: Vital Signs: Vital Signs Date Time Temp Pulse Resp B/P Pulse Ox O2 Delivery O2 Flow Rate FiO2 12/09/16 11:53 16 12/09/16 10:49 99.1 73 94/61 95 Nasal Cannula 2.0 99.1 Labs: Laboratory Tests Test 12/08/16 16:52 12/08/16 17:50 12/08/16 20:45 12/09/16 08:09 Glucose (Fingerstick) 91mg/dL (70-99) 124mg/dL (70-99) 97mg/dL (70-99) Influenza Type A Antigen Negative (NEGATIVE) Influenza Type B Antigen Negative (NEGATIVE) Test 12/09/16 09:00 12/09/16 10:56 Sodium Level 144mmol/L (136-145) Potassium Level 4.2mmol/L (3.5-5.1) Chloride Level 112mmol/L (98-107) Carbon Dioxide Level 25mmol/L (21-32) Anion Gap 7 (6-14) Blood Urea Nitrogen 40mg/dL (8-26) Creatinine 3.2mg/dL (0.7-1.3) Estimated GFR (Cockcroft-Gault) 23.4 BUN/Creatinine Ratio 13 (6-20) Glucose Level 107mg/dL (70-99) Calcium Level 6.9mg/dL (8.5-10.1) Total Bilirubin 1.0mg/dL (0.2-1.0) Aspartate Amino Transf (AST/SGOT) 57U/L (15-37) Alanine Aminotransferase (ALT/SGPT) 13U/L (16-63) Alkaline Phosphatase 67U/L (46-116) Total Protein 6.6g/dL (6.4-8.2) Albumin 0.9g/dL (3.4-5.0) Albumin/Globulin Ratio 0.2 (1.0-1.7) Prealbumin 3mg/dL (10-36) Glucose (Fingerstick) 104mg/dL (70-99) Physical Exam: Physical Exam: Refuses exam. Nurse present Assessment & Plan: Assessment : 1) Abd pain: unclear etiology. ? Constipation. Pt refuses to let me examine him 2) Low Albumin: Suspect multifacotrial. Prealb low. Abd sono does not indicate liver disease 3) Dilated CHD: Suspect secondary to pancreatic disease. Favor eval by primary GI/Onc Plan: Dr Ortiz will readdress tomorrow Problems: ANALILIA CHURCH MD Dec 09, 2016 13:08
--- NOTE | 2016-12-09 13:34 | PDOC ---
Infectious Disease Note Subjective Subjective Periods of confusion per RN C/o abdominal pain. Denies SOA, cough or CP. No increase O2 requirements No fever last 24 hours ROS ROS GEN: Denies chills GI: Denies n/v/d Vital Sign Vital Signs Vital Signs Date Time Temp Pulse Resp B/P Pulse Ox O2 Delivery O2 Flow Rate FiO2 12/09/16 11:53 16 12/09/16 10:49 99.1 73 94/61 95 Nasal Cannula 2.0 99.1 Physical Exam PHYSICAL EXAM GENERAL: up in the chair, NAD HENT: Normal conjunctivae. Oral cavity pink, dry LUNGS: Fine crackles bases. Nonlabored. On O2 NC. HEART: Normal S1 S2. Pacemaker ABDOMEN: Distended, BS present, soft, nontender : Finnegan EXTREMITIES: No gross pitting edema. No cyanosis SKIN: without rash NEUROLOGICAL: Alert, answers simple questions appropriately, poor historian. Port-a-cath. clean Labs Lab Laboratory Tests Test 12/08/16 16:52 12/08/16 17:50 12/08/16 20:45 12/09/16 08:09 Glucose (Fingerstick) 91mg/dL (70-99) 124mg/dL (70-99) 97mg/dL (70-99) Influenza Type A Antigen Negative (NEGATIVE) Influenza Type B Antigen Negative (NEGATIVE) Test 12/09/16 09:00 12/09/16 10:56 Sodium Level 144mmol/L (136-145) Potassium Level 4.2mmol/L (3.5-5.1) Chloride Level 112mmol/L (98-107) Carbon Dioxide Level 25mmol/L (21-32) Anion Gap 7 (6-14) Blood Urea Nitrogen 40mg/dL (8-26) Creatinine 3.2mg/dL (0.7-1.3) Estimated GFR (Cockcroft-Gault) 23.4 BUN/Creatinine Ratio 13 (6-20) Glucose Level 107mg/dL (70-99) Calcium Level 6.9mg/dL (8.5-10.1) Total Bilirubin 1.0mg/dL (0.2-1.0) Aspartate Amino Transf (AST/SGOT) 57U/L (15-37) Alanine Aminotransferase (ALT/SGPT) 13U/L (16-63) Alkaline Phosphatase 67U/L (46-116) Total Protein 6.6g/dL (6.4-8.2) Albumin 0.9g/dL (3.4-5.0) Albumin/Globulin Ratio 0.2 (1.0-1.7) Prealbumin 3mg/dL (10-36) Glucose (Fingerstick) 104mg/dL (70-99) CT Head IMPRESSION: 1. Mild chronic ischemic change in the deep white matter bilaterally. 4. 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 3. No acute intracranial abnormality. 4. Extensive bilateral paranasal sinusitis Micro BLOOD CULTURE Preliminary NO GROWTH AFTER 1 DAY Objective Assessment Fever Leukocytosis ? HCAP -Influenza neg UTI. POA CHF MONICA on CKD Pancreatic cancer Plan Plan of Care Continue Zosyn f/u cultures Patient seen and examined. Chart reviewed. Case discussed with [employer]IE[employer]. Agree with above plan. HERIBERTO REYNOLDS APRN Dec 09, 2016 13:34 VALERY JENSEN MD Dec 09, 2016 15:38
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
[2016-12-09 14:34] VITALS: BP 106/71
--- NOTE | 2016-12-09 15:27 | PDOC ---
PROGRESS NOTES Subjective Subjective Covering for Dr. Rascon Patient is confused. Was agitated earlier. No significant cardiac complaints at this point Objective Objective Vital Signs Date Time Temp Pulse Resp B/P Pulse Ox O2 Delivery O2 Flow Rate FiO2 12/09/16 14:34 97.9 96 21 106/71 Nasal Cannula 2.0 97.9 12/09/16 14:21 95 Intake and Output 12/09/16 07:00 Intake Total 380 ml Output Total 400 ml Balance -20 ml Intake Oral 180 ml IV Total 200 ml Output Urine Total 400 ml Physical Exam Physical Exam No significant changes in cardiac exam Assessment Assessment Patient seems to be doing better. Is not agitated at this point. Dr. Rascon will be back tomorrow. Further workup and treatment as per Dr. Rascon Problems Medical Problems: (1) Congestive heart failure Status: Acute Comment Review of Relevant I have reviewed the following items tyrel (where applicable) has been applied. Labs Laboratory Tests Test 12/07/16 16:39 12/07/16 20:10 12/08/16 01:15 12/08/16 07:55 Glucose (Fingerstick) 163mg/dL (70-99) 118mg/dL (70-99) 150mg/dL (70-99) White Blood Count 11.7x10^3/uL (4.0-11.0) Red Blood Count 3.08x10^6/uL (4.30-5.70) Hemoglobin 9.1g/dL (13.0-17.5) Hematocrit 28.4% (39.0-53.0) Mean Corpuscular Volume 93fL (79-100) Mean Corpuscular Hemoglobin 30pg (25-35) Mean Corpuscular Hemoglobin Concent 32g/dL (31-37) Red Cell Distribution Width 17.9% (11.5-14.5) Platelet Count 62x10^3/uL (140-400) Neutrophils (%) (Auto) 59% (31-73) Lymphocytes (%) (Auto) 27% (24-48) Monocytes (%) (Auto) 13% (0-9) Eosinophils (%) (Auto) 0% (0-3) Basophils (%) (Auto) 0% (0-3) Neutrophils # (Auto) 6.9x10^3uL (1.8-7.7) Lymphocytes # (Auto) 3.2x10^3/uL (1.0-4.8) Monocytes # (Auto) 1.5x10^3/uL (0.0-1.1) Eosinophils # (Auto) 0.0x10^3/uL (0.0-0.7) Basophils # (Auto) 0.0x10^3/uL (0.0-0.2) Sodium Level 143mmol/L (136-145) Potassium Level 4.1mmol/L (3.5-5.1) Chloride Level 109mmol/L (98-107) Carbon Dioxide Level 19mmol/L (21-32) Anion Gap 15 (6-14) Blood Urea Nitrogen 35mg/dL (8-26) Creatinine 3.4mg/dL (0.7-1.3) Estimated GFR (Cockcroft-Gault) 21.8 BUN/Creatinine Ratio 10 (6-20) Glucose Level 143mg/dL (70-99) Calcium Level 7.1mg/dL (8.5-10.1) Total Bilirubin 1.3mg/dL (0.2-1.0) Aspartate Amino Transf (AST/SGOT) 68U/L (15-37) Alanine Aminotransferase (ALT/SGPT) 20U/L (16-63) Alkaline Phosphatase 95U/L (46-116) Total Protein 8.3g/dL (6.4-8.2) Albumin 1.4g/dL (3.4-5.0) Albumin/Globulin Ratio 0.2 (1.0-1.7) Procalcitonin 1.13ng/mL (0.00-0.10) Test 12/08/16 10:48 12/08/16 12:30 12/08/16 16:52 12/08/16 17:50 Glucose (Fingerstick) 99mg/dL (70-99) 91mg/dL (70-99) Urine Collection Type Unknown Urine Color Elena Urine Clarity Cloudy Urine pH 5.5 Urine Specific [place] 1.020 Urine Protein 100mg/dL (NEG-TRACE) Urine Glucose (UA) Negativemg/dL (NEG) Urine Ketones (Stick) Negativemg/dL (NEG) Urine Blood Large (NEG) Urine Nitrite Negative (NEG) Urine Bilirubin Small (NEG) Urine Urobilinogen Dipstick 1.0mg/dL (0.2 mg/dL) Urine Leukocyte Esterase Large (NEG) Urine RBC Tntc/HPF (0-2) Urine WBC Tntc/HPF (0-4) Urine Bacteria Many/HPF (0-FEW) Urine Hyaline Casts Many/HPF Influenza Type A Antigen Negative (NEGATIVE) Influenza Type B Antigen Negative (NEGATIVE) Test 12/08/16 20:45 12/09/16 08:09 12/09/16 09:00 12/09/16 10:56 Glucose (Fingerstick) 124mg/dL (70-99) 97mg/dL (70-99) 104mg/dL (70-99) Sodium Level 144mmol/L (136-145) Potassium Level 4.2mmol/L (3.5-5.1) Chloride Level 112mmol/L (98-107) Carbon Dioxide Level 25mmol/L (21-32) Anion Gap 7 (6-14) Blood Urea Nitrogen 40mg/dL (8-26) Creatinine 3.2mg/dL (0.7-1.3) Estimated GFR (Cockcroft-Gault) 23.4 BUN/Creatinine Ratio 13 (6-20) Glucose Level 107mg/dL (70-99) Calcium Level 6.9mg/dL (8.5-10.1) Total Bilirubin 1.0mg/dL (0.2-1.0) Aspartate Amino Transf (AST/SGOT) 57U/L (15-37) Alanine Aminotransferase (ALT/SGPT) 13U/L (16-63) Alkaline Phosphatase 67U/L (46-116) Total Protein 6.6g/dL (6.4-8.2) Albumin 0.9g/dL (3.4-5.0) Albumin/Globulin Ratio 0.2 (1.0-1.7) Prealbumin 3mg/dL (10-36) Laboratory Tests Test 12/08/16 16:52 12/08/16 17:50 12/08/16 20:45 12/09/16 08:09 Glucose (Fingerstick) 91mg/dL (70-99) 124mg/dL (70-99) 97mg/dL (70-99) Influenza Type A Antigen Negative (NEGATIVE) Influenza Type B Antigen Negative (NEGATIVE) Test 12/09/16 09:00 12/09/16 10:56 Sodium Level 144mmol/L (136-145) Potassium Level 4.2mmol/L (3.5-5.1) Chloride Level 112mmol/L (98-107) Carbon Dioxide Level 25mmol/L (21-32) Anion Gap 7 (6-14) Blood Urea Nitrogen 40mg/dL (8-26) Creatinine 3.2mg/dL (0.7-1.3) Estimated GFR (Cockcroft-Gault) 23.4 BUN/Creatinine Ratio 13 (6-20) Glucose Level 107mg/dL (70-99) Calcium Level 6.9mg/dL (8.5-10.1) Total Bilirubin 1.0mg/dL (0.2-1.0) Aspartate Amino Transf (AST/SGOT) 57U/L (15-37) Alanine Aminotransferase (ALT/SGPT) 13U/L (16-63) Alkaline Phosphatase 67U/L (46-116) Total Protein 6.6g/dL (6.4-8.2) Albumin 0.9g/dL (3.4-5.0) Albumin/Globulin Ratio 0.2 (1.0-1.7) Prealbumin 3mg/dL (10-36) Glucose (Fingerstick) 104mg/dL (70-99) Microbiology 12/08/16 Blood Culture - Preliminary, Resulted NO GROWTH AFTER 1 DAY 12/08/16 Urine Culture - Preliminary, Resulted 12/08/16 Urine Culture Result 1 (BERONICA) - Preliminary, Resulted Medications Current Medications Ondansetron HCl (Zofran) 4 mg PRN Q8HRS PRN IV NAUSEA/VOMITING; Start 12/05/16 at 18:45; Stop 12/06/16 at 18:45; Status DC Furosemide 80 mg 80 mg 1X ONCE IVP Last administered on 12/05/16t 19:55; Start 12/05/16 at 19:45; Stop 12/05/16 at 19:46; Status DC Sodium Chloride (Iv Sodium Chloride 0.9% 1000ml Bag) 1,000 ml @ 75 mls/hr [id number] IV Last administered on 12/07/16t 20:15; Start 12/05/16 at 22:00; Stop 12/07/16 at 20:50; Status DC Albuterol/ Ipratropium (Duoneb) 3 ml RTQID NEB Last administered on 12/09/16 10:47; Start 12/05/16 at 23:00 Oxycodone HCl (Roxicodone) 30 mg PRN Q4HRS PRN PO SEVERE PAIN Last administered on 12/09/16 11:53; Start 12/05/16 at 22:15 Aspirin (Children'S Aspirin) 81 mg DAILYWBKFT PO Last administered on 08:11; Start 12/06/16 at 08:00 Famotidine (Pepcid) 20 mg DAILY PO Last administered on 12/09/16 08:11; Start 12/06/16 at 09:00 Ferrous Sulfate (Feosol) 325 mg DAILYWBKFT PO Last administered on 12/09/16 08 :11; Start 12/06/16 at 08:00 Insulin Aspart (Novolog) 6 units TIDAC SQ Last administered on 12/08/16 09:08 ; Start 12/06/16 at 07:30 Isosorbide Mononitrate (Imdur) 30 mg DAILY PO Last administered on 12/09/16 08 :11; Start 12/06/16 at 09:00 Dextrose 12.5 gm PRN Q15MIN PRN IV SEE COMMENTS; Start 12/05/16 at 23:15 Iohexol (Omnipaque 240 Mg/ml) 30 ml 1X ONCE PO Last administered on 12/06/16 11:43; Start 12/06/16 at 10:30; Stop 12/06/16 at 10:31; Status DC Info (Do NOT chart on this entry -- for MONITORING) 1 each PRN DAILY PRN MC SEE COMMENTS; Start 12/06/16 at 10:30; Stop 12/08/16 at 10:29; Status DC Tamsulosin HCl (Flomax) 0.4 mg QHS PO Last administered on 12/08/16 20:57; Start 12/07/16 at 21:00 Metoclopramide HCl 5 mg 5 mg TIDACHC PO Last administered on 12/09/16 11:45; Start 12/07/16 at 21:00 Albumin Human (Plasmanate) 250 ml @ 62.5 mls/hr 1X ONCE IV Last administered on 12/07/16 21:16; Start 12/07/16 at 21:00; Stop 12/08/16 at 00:59; Status DC Acetaminophen (Tylenol) 325 mg PRN Q6HRS PRN PO MILD PAIN / TEMP; Start at 00:30 Metoprolol Tartrate (Lopressor) 25 mg 1X ONCE PO Last administered on 00:59; Start 12/08/16 at 01:00; Stop 12/08/16 at 01:01; Status DC Metoprolol Succinate (Toprol Xl) 50 mg DAILY PO Last administered on 12/09/16 08:11; Start 12/08/16 at 09:00 Diltiazem HCl (Cardizem) 30 mg PRN Q6HRS PRN PO ELEVATED BP, SEE COMMENTS; Start 12/08/16 at 00:30 Dronabinol 2.5 mg 2.5 mg BIDACLD PO Last administered on 12/09/16 11:45; Start 12/08/16 at 16:30 Piperacillin Sod/ Tazobactam Sod/ Sodium Chloride (Zosyn/Iv Sodium Chloride 0.9 % 50ml) 50 ml @ 100 mls/hr Q8HRS IV Last administered on 12/09/16 14:18; Start 12/08/16 at 18:00 Active Scripts Active Lasix (Furosemide) 40 Mg Tablet 1 Tab PO DAILY Reported Amlodipine Besylate 5 Mg Tablet 5 Mg PO DAILY Oxycodone Hcl 30 Mg Tablet 1 Tab PO Q4HRS Isosorbide Mononitrate Er (Isosorbide Mononitrate) 30 Mg Tab.er.24h 1 Tab PO DAILY Pepcid (Famotidine) 20 Mg Tablet 20 Mg PO BID Novolog Flexpen (Insulin Aspart) 100 Unit/1 Ml Insuln.pen 6 Unit SQ TIDAC Percocet 5-325 Mg Tablet (Oxycodone/Acetaminophen) 1 Each Tablet 1 Tab PO Q8HRS PRN Metoprolol Succinate 50 Mg Tab.er.24h Isosorbide Mononitrate Er (Isosorbide Mononitrate) 30 Mg Tab.er.24h 30 Mg Reglan (Metoclopramide Hcl) 10 Mg Tablet 10 Mg PO QIDACHS Toprol Xl (Metoprolol Succinate) 50 Mg Tab.er.24h 1 Tab PO BID Aspir 81 (Aspirin) 81 Mg Tablet.dr 1 Tab PO DAILY Imdur (Isosorbide Mononitrate) 30 Mg Tab.er.24h 30 Mg PO DAILY Ferrous Sulfate 325 Mg Tablet 325 Mg PO DAILY Vitals/I & O Vital Sign - Last 24 Hours 12/08/16 12/08/16 12/08/16 12/08/16 18:21 19:17 19:24 23:15 Temp 98.8 98.4 98.8 98.4 Pulse 79 91 Resp 18 16 B/P 111/72 121/73 Pulse Ox 92 93 O2 Delivery Nasal Cannula Nasal Cannula Nasal Cannula Nasal Cannula O2 Flow Rate 2.0 2.0 2.0 2.0 12/09/16 12/09/16 12/09/16 12/09/16 02:49 07:37 07:50 08:00 Temp 98.3 99.3 98.3 99.3 Pulse 84 61 Resp 18 19 B/P 115/66 97/52 Pulse Ox 98 100 97 O2 Delivery Nasal Cannula Nasal Cannula Nasal Cannula Nasal Cannula O2 Flow Rate 2.0 2.0 2.0 2.0 12/09/16 12/09/16 12/09/16 12/09/16 08:11 08:11 10:47 10:49 Temp 99.1 99.1 Pulse 61 61 73 Resp 20 B/P 97/52 97/52 94/61 Pulse Ox 95 O2 Delivery Nasal Cannula Nasal Cannula O2 Flow Rate 2.0 2.0 12/09/16 12/09/16 12/09/16 11:53 14:21 14:34 Temp 97.9 97.9 Pulse 96 Resp 16 B/P 106/71 Pulse Ox 95 O2 Delivery Nasal Cannula Nasal Cannula O2 Flow Rate 2.0 2.0 Intake and Output 12/08/16 12/08/16 12/09/16 15:00 23:00 07:00 Intake Total 280 ml 100 ml Output Total 150 ml 250 ml Balance 130 ml -150 ml DALILA CUMMINGS MD Dec 09, 2016 15:27
--- NOTE | 2016-12-09 16:39 | PDOC ---
PROGRESS NOTES Assessment 1. Encephalopathy-he continues to have a very delayed response but has improved today and that he is actually able to answer a question if I persist and continue to get his attention. He was able to tell me the name of the hospital and the number of children that he has. Between answers he seems very spacey and poorly focused. 2. Abdominal pain-imaging studies have not revealed definite evidence for recurrent tumor but he does have ascites which could potentially be malignant. 3. The CT scan of the head performed without contrast does not reveal evidence of an acute intracranial process. He cannot have contrast because of renal failure. The last CAT scan was a month ago and there was no interval change. 4. Chronic pain-chronic narcotic analgesics can affect his cognition adversely. Plan 1. He may require evaluation of the ascitic fluid. 2. He cannot have an MRI because of pacemaker. I don't feel that further neuro imaging is needed at this time. 3. Hopefully he will continue to improve as his underlying medical issues are treated. Subjective My abdomen hurts. Objective Vital Signs Date Time Temp Pulse Resp B/P Pulse Ox O2 Delivery O2 Flow Rate FiO2 12/09/16 15:33 Nasal Cannula 2.0 12/09/16 14:34 97.9 96 21 106/71 97.9 12/09/16 14:21 95 Intake and Output 12/09/16 07:00 Intake Total 380 ml Output Total 400 ml Balance -20 ml Intake Oral 180 ml IV Total 200 ml Output Urine Total 400 ml PHYSICAL EXAM He was sitting in the chair watching a football game. When he stared he had very poor focus most of the time. I couldn't get him to look at the examiner briefly and he seemed to focus. Attention and concentration were impaired. He was oriented to place. He was able to answer simple questions regarding the number of children he has. He was able to follow some commands but not when his attention was not achieved. The movements of the arms and legs were slow but symmetric. If unstimulated he would become spacey. There was no obvious seizure activity. His sitting balance was good. Review of Relevant I have reviewed the following items tyrel (where applicable) has been applied. Labs Laboratory Tests Test 12/07/16 16:39 12/07/16 20:10 12/08/16 01:15 12/08/16 07:55 Glucose (Fingerstick) 163mg/dL (70-99) 118mg/dL (70-99) 150mg/dL (70-99) White Blood Count 11.7x10^3/uL (4.0-11.0) Red Blood Count 3.08x10^6/uL (4.30-5.70) Hemoglobin 9.1g/dL (13.0-17.5) Hematocrit 28.4% (39.0-53.0) Mean Corpuscular Volume 93fL (79-100) Mean Corpuscular Hemoglobin 30pg (25-35) Mean Corpuscular Hemoglobin Concent 32g/dL (31-37) Red Cell Distribution Width 17.9% (11.5-14.5) Platelet Count 62x10^3/uL (140-400) Neutrophils (%) (Auto) 59% (31-73) Lymphocytes (%) (Auto) 27% (24-48) Monocytes (%) (Auto) 13% (0-9) Eosinophils (%) (Auto) 0% (0-3) Basophils (%) (Auto) 0% (0-3) Neutrophils # (Auto) 6.9x10^3uL (1.8-7.7) Lymphocytes # (Auto) 3.2x10^3/uL (1.0-4.8) Monocytes # (Auto) 1.5x10^3/uL (0.0-1.1) Eosinophils # (Auto) 0.0x10^3/uL (0.0-0.7) Basophils # (Auto) 0.0x10^3/uL (0.0-0.2) Sodium Level 143mmol/L (136-145) Potassium Level 4.1mmol/L (3.5-5.1) Chloride Level 109mmol/L (98-107) Carbon Dioxide Level 19mmol/L (21-32) Anion Gap 15 (6-14) Blood Urea Nitrogen 35mg/dL (8-26) Creatinine 3.4mg/dL (0.7-1.3) Estimated GFR (Cockcroft-Gault) 21.8 BUN/Creatinine Ratio 10 (6-20) Glucose Level 143mg/dL (70-99) Calcium Level 7.1mg/dL (8.5-10.1) Total Bilirubin 1.3mg/dL (0.2-1.0) Aspartate Amino Transf (AST/SGOT) 68U/L (15-37) Alanine Aminotransferase (ALT/SGPT) 20U/L (16-63) Alkaline Phosphatase 95U/L (46-116) Total Protein 8.3g/dL (6.4-8.2) Albumin 1.4g/dL (3.4-5.0) Albumin/Globulin Ratio 0.2 (1.0-1.7) Procalcitonin 1.13ng/mL (0.00-0.10) Test 12/08/16 10:48 12/08/16 12:30 12/08/16 16:52 12/08/16 17:50 Glucose (Fingerstick) 99mg/dL (70-99) 91mg/dL (70-99) Urine Collection Type Unknown Urine Color Elena Urine Clarity Cloudy Urine pH 5.5 Urine Specific [place] 1.020 Urine Protein 100mg/dL (NEG-TRACE) Urine Glucose (UA) Negativemg/dL (NEG) Urine Ketones (Stick) Negativemg/dL (NEG) Urine Blood Large (NEG) Urine Nitrite Negative (NEG) Urine Bilirubin Small (NEG) Urine Urobilinogen Dipstick 1.0mg/dL (0.2 mg/dL) Urine Leukocyte Esterase Large (NEG) Urine RBC Tntc/HPF (0-2) Urine WBC Tntc/HPF (0-4) Urine Bacteria Many/HPF (0-FEW) Urine Hyaline Casts Many/HPF Influenza Type A Antigen Negative (NEGATIVE) Influenza Type B Antigen Negative (NEGATIVE) Test 12/08/16 20:45 12/09/16 08:09 12/09/16 09:00 12/09/16 10:56 Glucose (Fingerstick) 124mg/dL (70-99) 97mg/dL (70-99) 104mg/dL (70-99) Sodium Level 144mmol/L (136-145) Potassium Level 4.2mmol/L (3.5-5.1) Chloride Level 112mmol/L (98-107) Carbon Dioxide Level 25mmol/L (21-32) Anion Gap 7 (6-14) Blood Urea Nitrogen 40mg/dL (8-26) Creatinine 3.2mg/dL (0.7-1.3) Estimated GFR (Cockcroft-Gault) 23.4 BUN/Creatinine Ratio 13 (6-20) Glucose Level 107mg/dL (70-99) Calcium Level 6.9mg/dL (8.5-10.1) Total Bilirubin 1.0mg/dL (0.2-1.0) Aspartate Amino Transf (AST/SGOT) 57U/L (15-37) Alanine Aminotransferase (ALT/SGPT) 13U/L (16-63) Alkaline Phosphatase 67U/L (46-116) Total Protein 6.6g/dL (6.4-8.2) Albumin 0.9g/dL (3.4-5.0) Albumin/Globulin Ratio 0.2 (1.0-1.7) Prealbumin 3mg/dL (10-36) Laboratory Tests Test 12/08/16 16:52 12/08/16 17:50 12/08/16 20:45 12/09/16 08:09 Glucose (Fingerstick) 91mg/dL (70-99) 124mg/dL (70-99) 97mg/dL (70-99) Influenza Type A Antigen Negative (NEGATIVE) Influenza Type B Antigen Negative (NEGATIVE) Test 12/09/16 09:00 12/09/16 10:56 Sodium Level 144mmol/L (136-145) Potassium Level 4.2mmol/L (3.5-5.1) Chloride Level 112mmol/L (98-107) Carbon Dioxide Level 25mmol/L (21-32) Anion Gap 7 (6-14) Blood Urea Nitrogen 40mg/dL (8-26) Creatinine 3.2mg/dL (0.7-1.3) Estimated GFR (Cockcroft-Gault) 23.4 BUN/Creatinine Ratio 13 (6-20) Glucose Level 107mg/dL (70-99) Calcium Level 6.9mg/dL (8.5-10.1) Total Bilirubin 1.0mg/dL (0.2-1.0) Aspartate Amino Transf (AST/SGOT) 57U/L (15-37) Alanine Aminotransferase (ALT/SGPT) 13U/L (16-63) Alkaline Phosphatase 67U/L (46-116) Total Protein 6.6g/dL (6.4-8.2) Albumin 0.9g/dL (3.4-5.0) Albumin/Globulin Ratio 0.2 (1.0-1.7) Prealbumin 3mg/dL (10-36) Glucose (Fingerstick) 104mg/dL (70-99) Microbiology 12/08/16 Blood Culture - Preliminary, Resulted NO GROWTH AFTER 1 DAY 12/08/16 Urine Culture - Preliminary, Resulted 12/08/16 Urine Culture Result 1 (BERONICA) - Preliminary, Resulted Medications Current Medications Ondansetron HCl (Zofran) 4 mg PRN Q8HRS PRN IV NAUSEA/VOMITING; Start 12/05/16 at 18:45; Stop 12/06/16 at 18:45; Status DC Furosemide 80 mg 80 mg 1X ONCE IVP Last administered on 12/05/16 19:55; Start 12/05/16 at 19:45; Stop 12/05/16 at 19:46; Status DC Sodium Chloride (Iv Sodium Chloride 0.9% 1000ml Bag) 1,000 ml @ 75 mls/hr [id number] IV Last administered on 12/07/16 20:15; Start 12/05/16 at 22:00; Stop 12/07/16 at 20:50; Status DC Albuterol/ Ipratropium (Duoneb) 3 ml RTQID NEB Last administered on 12/09/16 15:32; Start 12/05/16 at 23:00 Oxycodone HCl (Roxicodone) 30 mg PRN Q4HRS PRN PO SEVERE PAIN Last administered on 12/09/16 11:53; Start 12/05/16 at 22:15 Aspirin (Children'S Aspirin) 81 mg DAILYWBKFT PO Last administered on 08:11; Start 12/06/16 at 08:00 Famotidine (Pepcid) 20 mg DAILY PO Last administered on 12/09/16 08:11; Start 12/06/16 at 09:00 Ferrous Sulfate (Feosol) 325 mg DAILYWBKFT PO Last administered on 12/09/16 08 :11; Start 12/06/16 at 08:00 Insulin Aspart (Novolog) 6 units TIDAC SQ Last administered on 12/08/16 09:08 ; Start 12/06/16 at 07:30 Isosorbide Mononitrate (Imdur) 30 mg DAILY PO Last administered on 12/09/16 08 :11; Start 12/06/16 at 09:00 Dextrose 12.5 gm PRN Q15MIN PRN IV SEE COMMENTS; Start 12/05/16 at 23:15 Iohexol (Omnipaque 240 Mg/ml) 30 ml 1X ONCE PO Last administered on 12/06/16 11:43; Start 12/06/16 at 10:30; Stop 12/06/16 at 10:31; Status DC Info (Do NOT chart on this entry -- for MONITORING) 1 each PRN DAILY PRN MC SEE COMMENTS; Start 12/06/16 at 10:30; Stop 12/08/16 at 10:29; Status DC Tamsulosin HCl (Flomax) 0.4 mg QHS PO Last administered on 12/08/16 20:57; Start 12/07/16 at 21:00 Metoclopramide HCl 5 mg 5 mg TIDACHC PO Last administered on 12/09/16 11:45; Start 12/07/16 at 21:00 Albumin Human (Plasmanate) 250 ml @ 62.5 mls/hr 1X ONCE IV Last administered on 12/07/16 21:16; Start 12/07/16 at 21:00; Stop 12/08/16 at 00:59; Status DC Acetaminophen (Tylenol) 325 mg PRN Q6HRS PRN PO MILD PAIN / TEMP; Start at 00:30 Metoprolol Tartrate (Lopressor) 25 mg 1X ONCE PO Last administered on 00:59; Start 12/08/16 at 01:00; Stop 12/08/16 at 01:01; Status DC Metoprolol Succinate (Toprol Xl) 50 mg DAILY PO Last administered on 12/09/16 08:11; Start 12/08/16 at 09:00 Diltiazem HCl (Cardizem) 30 mg PRN Q6HRS PRN PO ELEVATED BP, SEE COMMENTS; Start 12/08/16 at 00:30 Dronabinol 2.5 mg 2.5 mg BIDACLD PO Last administered on 12/09/16 11:45; Start 12/08/16 at 16:30 Piperacillin Sod/ Tazobactam Sod/ Sodium Chloride (Zosyn/Iv Sodium Chloride 0.9 % 50ml) 50 ml @ 100 mls/hr Q8HRS IV Last administered on 12/09/16t 14:18; Start 12/08/16 at 18:00 Active Scripts Active Lasix (Furosemide) 40 Mg Tablet 1 Tab PO DAILY Reported Amlodipine Besylate 5 Mg Tablet 5 Mg PO DAILY Oxycodone Hcl 30 Mg Tablet 1 Tab PO Q4HRS Isosorbide Mononitrate Er (Isosorbide Mononitrate) 30 Mg Tab.er.24h 1 Tab PO DAILY Pepcid (Famotidine) 20 Mg Tablet 20 Mg PO BID Novolog Flexpen (Insulin Aspart) 100 Unit/1 Ml Insuln.pen 6 Unit SQ TIDAC Percocet 5-325 Mg Tablet (Oxycodone/Acetaminophen) 1 Each Tablet 1 Tab PO Q8HRS PRN Metoprolol Succinate 50 Mg Tab.er.24h Isosorbide Mononitrate Er (Isosorbide Mononitrate) 30 Mg Tab.er.24h 30 Mg Reglan (Metoclopramide Hcl) 10 Mg Tablet 10 Mg PO QIDACHS Toprol Xl (Metoprolol Succinate) 50 Mg Tab.er.24h 1 Tab PO BID Aspir 81 (Aspirin) 81 Mg Tablet.dr 1 Tab PO DAILY Imdur (Isosorbide Mononitrate) 30 Mg Tab.er.24h 30 Mg PO DAILY Ferrous Sulfate 325 Mg Tablet 325 Mg PO DAILY Vitals/I & O Vital Sign - Last 24 Hours 12/08/16 12/08/16 12/08/16 12/08/16 18:21 19:17 19:24 23:15 Temp 98.8 98.4 98.8 98.4 Pulse 79 91 Resp 18 16 B/P 111/72 121/73 Pulse Ox 92 93 O2 Delivery Nasal Cannula Nasal Cannula Nasal Cannula Nasal Cannula O2 Flow Rate 2.0 2.0 2.0 2.0 12/09/16 12/09/16 12/09/16 12/09/16 02:49 07:37 07:50 08:00 Temp 98.3 99.3 98.3 99.3 Pulse 84 61 Resp 18 19 B/P 115/66 97/52 Pulse Ox 98 100 97 O2 Delivery Nasal Cannula Nasal Cannula Nasal Cannula Nasal Cannula O2 Flow Rate 2.0 2.0 2.0 2.0 12/09/16 12/09/16 12/09/16 12/09/16 08:11 08:11 10:47 10:49 Temp 99.1 99.1 Pulse 61 61 73 Resp 20 B/P 97/52 97/52 94/61 Pulse Ox 95 O2 Delivery Nasal Cannula Nasal Cannula O2 Flow Rate 2.0 2.0 12/09/16 12/09/16 12/09/16 12/09/16 11:53 14:21 14:34 15:33 Temp 97.9 97.9 Pulse 96 Resp 16 18 21 B/P 106/71 Pulse Ox 95 O2 Delivery Nasal Cannula Nasal Cannula Nasal Cannula O2 Flow Rate 2.0 2.0 2.0 Intake and Output 12/08/16 12/08/16 12/09/16 15:00 23:00 07:00 Intake Total 280 ml 100 ml Output Total 150 ml 250 ml Balance 130 ml -150 ml BREA BEARD MD Dec 09, 2016 16:39
[2016-12-09 19:35] VITALS: BP 106/61
[2016-12-09] MEDS: TAMSULOSIN 0.4 MG CAP.ER.24H. PO SCH (21:09)
[2016-12-09 23:58] VITALS: BP 139/64
[2016-12-10 00:28] VITALS: BP 139/64
[2016-12-10] MEDS ORDERED: HALOPERIDOL LACT 5 MG/ML VIAL. IVP ONE ×3 (00:30→19:00)
[2016-12-10] MEDS: PIPERACILLIN/TAZOBACTAM 2.25 GM in IV NORMAL SALINE 50ML 50 ML IV SCH (04:48)
[2016-12-10] MEDS: OXYCODONE IR 30 MG TABLET. PO PRN ×2 (04:49→20:28)
[2016-12-10 04:52] VITALS: BP 110/56
[2016-12-10 05:21] LABS: BASO % 0 % (0-3); EOS % 0 % (0-3); HEMATOCRIT 28.4 % (39.0-53.0); HEMOGLOBIN 9.4 g/dL (13.0-17.5); LYMPH % 18 % (24-48); MEAN CORPUSCULAR HEMOGLOBIN 30 pg (25-35); MEAN CORPUSCULAR HGB CONC 33 g/dL (31-37); MEAN CORPUSCULAR VOLUME 90 fL (79-100); MONO % 10 % (0-9); NEUT % 72 % (31-73); PLATELET COUNT 59 x10^3/uL (140-400); RED BLOOD COUNT 3.15 x10^6/uL (4.30-5.70); WHITE BLOOD COUNT 11.2 x10^3/uL (4.0-11.0)
[2016-12-10 06:15] LABS: CALCIUM 7.1 mg/dL (8.5-10.1); CREATININE 3.9 mg/dL (0.7-1.3); GFR 18.6; POTASSIUM 4.4 mmol/L (3.5-5.1)
[2016-12-10] MEDS: INSULIN ASPART 300 UNITS/3 ML INSULN.PEN SQ SCH ×5 (07:30→17:00)
[2016-12-10] MEDS: METOCLOPRAMIDE HCL 10 MG/10 ML SOLUTION. PO SCH ×4 (07:30→20:29)
[2016-12-10] MEDS: IPRATRPIUM/ALBUTEROL 0.5/2.5MG 3 ML NEBU. NEB SCH ×4 (07:52→19:52)
[2016-12-10 07:55] VITALS: BP 153/80
[2016-12-10] MEDS: ASPIRIN 81 MG TAB.CHEW PO SCH (08:00)
[2016-12-10] MEDS: FERROUS SULFATE 325 MG TABLET PO SCH (08:00)
--- NOTE | 2016-12-10 08:27 | PDOC ---
Infectious Disease Note Subjective Subjective Periods of confusion per RN C/o abdominal pain. Denies SOA, cough or CP. No increase O2 requirements No fever last 24 hours ROS ROS GEN: Denies fevers, chills, sweats HEENT: Denies blurred vision, sore throat CV: Denies chest pain RESP: Denies shortness of air, cough GI: Denies n/v/d NEURO: Denies confusion, dizziness MSK: Denies weakness, joint pain/swelling Vital Sign Vital Signs Vital Signs Date Time Temp Pulse Resp B/P Pulse Ox O2 Delivery O2 Flow Rate FiO2 12/10/16 07:57 Nasal Cannula 2.0 12/10/16 05:51 18 12/10/16 04:56 96 12/10/16 04:52 99.7 88 110/56 99.7 Physical Exam PHYSICAL EXAM GENERAL: NAD, in bed and confused HENT: Normal conjunctivae. Oral cavity pink, dry LUNGS: Fine crackles bases. Nonlabored. On O2 NC. HEART: Normal S1 S2. Pacemaker ABDOMEN: Distended, BS present, soft, nontender : [place] EXTREMITIES: No gross pitting edema. No cyanosis SKIN: without rash NEUROLOGICAL: Alert, poor historian, confused. Port-a-cath. clean Labs Lab Laboratory Tests Test 12/09/16 09:00 12/09/16 10:56 12/09/16 17:03 12/09/16 20:36 Sodium Level 144mmol/L (136-145) Potassium Level 4.2mmol/L (3.5-5.1) Chloride Level 112mmol/L (98-107) Carbon Dioxide Level 25mmol/L (21-32) Anion Gap 7 (6-14) Blood Urea Nitrogen 40mg/dL (8-26) Creatinine 3.2mg/dL (0.7-1.3) Estimated GFR (Cockcroft-Gault) 23.4 BUN/Creatinine Ratio 13 (6-20) Glucose Level 107mg/dL (70-99) Calcium Level 6.9mg/dL (8.5-10.1) Total Bilirubin 1.0mg/dL (0.2-1.0) Aspartate Amino Transf (AST/SGOT) 57U/L (15-37) Alanine Aminotransferase (ALT/SGPT) 13U/L (16-63) Alkaline Phosphatase 67U/L (46-116) Total Protein 6.6g/dL (6.4-8.2) Albumin 0.9g/dL (3.4-5.0) Albumin/Globulin Ratio 0.2 (1.0-1.7) Prealbumin 3mg/dL (10-36) Glucose (Fingerstick) 104mg/dL (70-99) 138mg/dL (70-99) 139mg/dL (70-99) Test 12/10/16 04:45 White Blood Count 11.2x10^3/uL (4.0-11.0) Red Blood Count 3.15x10^6/uL (4.30-5.70) Hemoglobin 9.4g/dL (13.0-17.5) Hematocrit 28.4% (39.0-53.0) Mean Corpuscular Volume 90fL (79-100) Mean Corpuscular Hemoglobin 30pg (25-35) Mean Corpuscular Hemoglobin Concent 33g/dL (31-37) Red Cell Distribution Width 18.0% (11.5-14.5) Platelet Count 59x10^3/uL (140-400) Neutrophils (%) (Auto) 72% (31-73) Lymphocytes (%) (Auto) 18% (24-48) Monocytes (%) (Auto) 10% (0-9) Eosinophils (%) (Auto) 0% (0-3) Basophils (%) (Auto) 0% (0-3) Neutrophils # (Auto) 8.1x10^3uL (1.8-7.7) Lymphocytes # (Auto) 2.0x10^3/uL (1.0-4.8) Monocytes # (Auto) 1.1x10^3/uL (0.0-1.1) Eosinophils # (Auto) 0.0x10^3/uL (0.0-0.7) Basophils # (Auto) 0.0x10^3/uL (0.0-0.2) Sodium Level 140mmol/L (136-145) Potassium Level 4.4mmol/L (3.5-5.1) Chloride Level 108mmol/L (98-107) Carbon Dioxide Level 19mmol/L (21-32) Anion Gap 13 (6-14) Blood Urea Nitrogen 43mg/dL (8-26) Creatinine 3.9mg/dL (0.7-1.3) Estimated GFR (Cockcroft-Gault) 18.6 Glucose Level 122mg/dL (70-99) Calcium Level 7.1mg/dL (8.5-10.1) Objective Assessment Encephalopathy Fever Leukocytosis ? HCAP -Influenza neg UTI. GNR POA CHF MONICA on CKD Pancreatic cancer Plan Plan of Care Discontinue Zosyn given ongoing confusion/Leukocytosis. Add Meropenem in case resistance f/u cultures/labs Patient seen and examined. Chart reviewed. Case discussed with COMPUTER ENGINEERING TECHNICIAN. Agree with above plan. KATHIE SANDOVAL MD Dec 10, 2016 08:27
[2016-12-10] MEDS: METOPROLOL SUCC 24HR ER 50 MG TAB.ER.24H. PO SCH (09:00)
[2016-12-10] MEDS: ISOSORBIDE MONONITRATE ER 30 MG TAB.ER.24H PO SCH (09:00)
[2016-12-10] MEDS: FAMOTIDINE 20 MG TABLET. PO SCH (09:00)
[2016-12-10] MEDS ORDERED: DEXTROSE 50% 25 GM / 50ML DISP.SYRIN. IV PRN (09:45)
[2016-12-10] MEDS ORDERED: ONDANSETRON PF 4 MG/2 ML VIAL. IV PRN (09:45)
[2016-12-10] MEDS: MEROPENEM 500 MG in IV NORMAL SALINE 50ML 50 ML IV SCH (10:17)
[2016-12-10] MEDS: DRONABINOL 2.5 MG CAPSULE PO SCH ×2 (11:30→14:19)
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
[2016-12-10] MEDS ORDERED: ALBUMIN HUMAN 25% 100 ML IV ONE (12:00)
[2016-12-10] MEDS ORDERED: IPRATRPIUM/ALBUTEROL 0.5/2.5MG 3 ML NEBU. NEB SCH (12:00)
[2016-12-10] MEDS: HALOPERIDOL LACT 5 MG/ML VIAL. IVP PRN ×4 (12:16→20:28)
[2016-12-10] MEDS ORDERED: FUROSEMIDE 40 MG/4 ML VIAL IVP ONE (12:30)
[2016-12-10 13:02] LABS: INR 2.5 (0.8-1.1); PROTHROMBIN TIME PATIENT 25.3 SEC (11.7-14.0)
[2016-12-10] MEDS: TPN PER PHARMACY MC PRN ×2 (13:48→15:06)
[2016-12-10] MEDS ORDERED: AA 3%/ELECTROLYTE-TPN SOLN/GLY 1,000 ML IV SCH (14:00)
[2016-12-10 14:27] VITALS: BP 147/87
--- NOTE | 2016-12-10 14:46 | PDOC ---
PROGRESS NOTES Assessment Assessment IMPRESSION: Metabolic encephalopathy. CHF UTI Pancreatic cancer, s/p chemo. 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 RECOMMENDATIONS/PLAN: Continue ASA daily. Treat medical diseases. PAST MEDICAL AND SURGICAL HISTORY: Please see H&P ALLERGY: Reviewed. MEDICATIONS: Refer to [facility] REVIEW OF SYSTEMS: Constitutional: Malnutrition. Head: No recent traumatic brain or head injury. Skin: No edema, or rash. Ear: No infection, tinnitus. Eyes: No vision loss, or diplopia. Nose: No bleeding or purulent discharges. Hearing: Hearing decrease. Neck: No injury. Cardiac: No TX, arrhythmia Pulmonary: No COPD. GI: Pancreatic cancer. Urinary/genital: UTI. Endocrine: Diabetes Mellitus. Skeletomuscular: No muscular atrophy, deformity. Neurological: see HP. Psychiatric: Denies current drug use/abuse. Otherwise, not [id number] review of systems. PHYSICAL EXAMINATION: General appearance is lethargic.. HEENT: Normocephalic and nontraumatic. Eyes, nose, ears, and throat are unremarkable. Neck is supple. No lymphadenopathy. No bruits are heard over the carotid artery. No Crepitus. Cardiovascular: S1, S2, regular rate and rhythm. Pulmonary: relative clear to auscultation bilaterally. Abdomen: Bowel sounds are positive. Extremities: No rash, lesions, or edema. No restriction of range of motion NEUROLOGICAL EXAMINATION: Lethargic. Unable to communicate nor follow commands. Not oriented to time, place and person. PERRL. EOMI not elicited due to decreased mentation. CN: no focal findings. Muscle tone: within normal. Muscle strength: 4- DTR: 1-2 Plantar reflex: Neutral response bilaterally Gait: not examined in bed. Sensory exam: not able to follow commands. Not able to access cerebellar signs elicited. Objective Objective Vital Signs Date Time Temp Pulse Resp B/P Pulse Ox O2 Delivery O2 Flow Rate FiO2 12/10/16 08:00 Nasal Cannula 2.0 12/10/16 07:55 100 24 153/80 94 12/10/16 04:52 99.7 99.7 Intake and Output 12/10/16 07:00 Intake Total 270 ml Output Total 300 ml Balance -30 ml Intake Oral 120 ml IV Total 50 ml Other 100 ml Output Urine Total 300 ml Vitals Signs Vitals VS - Last 72 Hours, by Label Date Time Temp Pulse Resp B/P Pulse Ox O2 Delivery O2 Flow Rate FiO2 12/10/16 08:00 Nasal Cannula 2.0 12/10/16 07:57 Nasal Cannula 2.0 12/10/16 07:55 100 24 153/80 94 Nasal Cannula 3.0 12/10/16 05:51 18 Nasal Cannula 2.0 12/10/16 04:56 96 12/10/16 04:52 99.7 88 20 110/56 Nasal Cannula 2.0 99.7 12/10/16 04:49 23 Nasal Cannula 2.0 12/10/16 00:28 126 26 139/64 Nasal Cannula 2.0 12/09/16 23:58 98.8 101 20 139/64 91 Nasal Cannula 2.0 98.8 12/09/16 21:09 25 Nasal Cannula 2.0 12/09/16 20:00 Nasal Cannula 2.0 12/09/16 19:35 98.5 103 20 106/61 96 Nasal Cannula 2.0 98.5 12/09/16 18:25 Nasal Cannula 2.0 12/09/16 15:33 Nasal Cannula 2.0 12/09/16 14:34 97.9 96 21 106/71 Nasal Cannula 2.0 97.9 12/09/16 14:21 95 12/09/16 11:53 16 12/09/16 10:49 99.1 73 20 94/61 95 Nasal Cannula 2.0 99.1 12/09/16 10:47 Nasal Cannula 2.0 12/09/16 08:11 61 97/52 12/09/16 08:11 61 97/52 12/09/16 08:00 Nasal Cannula 2.0 12/09/16 07:50 99.3 61 19 97/52 97 Nasal Cannula 2.0 99.3 12/09/16 07:37 100 Nasal Cannula 2.0 Laboratory Laboratory Laboratory Tests Test 12/09/16 17:03 12/09/16 20:36 12/10/16 04:45 12/10/16 08:10 Glucose (Fingerstick) 138mg/dL (70-99) 139mg/dL (70-99) 130mg/dL (70-99) White Blood Count 11.2x10^3/uL (4.0-11.0) Red Blood Count 3.15x10^6/uL (4.30-5.70) Hemoglobin 9.4g/dL (13.0-17.5) Hematocrit 28.4% (39.0-53.0) Mean Corpuscular Volume 90fL (79-100) Mean Corpuscular Hemoglobin 30pg (25-35) Mean Corpuscular Hemoglobin Concent 33g/dL (31-37) Red Cell Distribution Width 18.0% (11.5-14.5) Platelet Count 59x10^3/uL (140-400) Neutrophils (%) (Auto) 72% (31-73) Lymphocytes (%) (Auto) 18% (24-48) Monocytes (%) (Auto) 10% (0-9) Eosinophils (%) (Auto) 0% (0-3) Basophils (%) (Auto) 0% (0-3) Neutrophils # (Auto) 8.1x10^3uL (1.8-7.7) Lymphocytes # (Auto) 2.0x10^3/uL (1.0-4.8) Monocytes # (Auto) 1.1x10^3/uL (0.0-1.1) Eosinophils # (Auto) 0.0x10^3/uL (0.0-0.7) Basophils # (Auto) 0.0x10^3/uL (0.0-0.2) Sodium Level 140mmol/L (136-145) Potassium Level 4.4mmol/L (3.5-5.1) Chloride Level 108mmol/L (98-107) Carbon Dioxide Level 19mmol/L (21-32) Anion Gap 13 (6-14) Blood Urea Nitrogen 43mg/dL (8-26) Creatinine 3.9mg/dL (0.7-1.3) Estimated GFR (Cockcroft-Gault) 18.6 Glucose Level 122mg/dL (70-99) Calcium Level 7.1mg/dL (8.5-10.1) Test 12/10/16 11:45 12/10/16 12:14 Prothrombin Time 25.3SEC (11.7-14.0) Prothromb Time International Ratio 2.5 (0.8-1.1) Activated Partial Thromboplast Time 50SEC (24-38) Ammonia 25mcmol/L (11-34) Glucose (Fingerstick) 105mg/dL (70-99) Microbiology 12/08/16 Blood Culture - Preliminary, Resulted NO GROWTH AFTER 2 DAYS 12/08/16 Urine Culture - Final, Complete 12/08/16 Urine Culture Result 1 (BERONICA) - Final, Complete 12/08/16 Antimicrobic Susceptibility - Final, Complete Medication Medications Current Medications Albumin Human (Albuminar) 100 ml @ 100 mls/hr 1X ONCE IV ; Start 12/10/16 at 12:00; Stop 12/10/16 at 12:59; Status DC Albuterol/ Ipratropium (Duoneb) 3 ml RTQID NEB ; Start 12/10/16 at 12:00; Status UNV Amino Acids/ Glycerin/ Electrolytes (Procalamine) 1,000 ml @ 80 mls/hr [id number] IV ; Start 12/10/16 at 14:00; Stop 12/10/16 at 21:59 Dextrose 12.5 gm 12.5 gm PRN Q15MIN PRN IV SEE COMMENTS; Start 12/10/16 at 09: 45 Furosemide (Lasix) 40 mg 1X ONCE IVP Last administered on 12/10/16 12:18; Start 12/10/16 at 12:30; Stop 12/10/16 at 12:31; Status DC Haloperidol Lactate (Haldol) 1 mg 1X ONCE IVP Last administered on 12/10/16 00:30; Start 12/10/16 at 00:30; Stop 12/10/16 at 00:31; Status DC Haloperidol Lactate (Haldol) 2.5 mg PRN Q4HRS PRN IVP AGITATION Last administered on 12/10/16 12:16; Start 12/10/16 at 09:30 Haloperidol Lactate 2.5 mg 2.5 mg 1X ONCE IVP Last administered on 12/10/16 08:15; Start 12/10/16 at 08:30; Stop 12/10/16 at 08:31; Status DC Info 1 each 1 each PRN DAILY PRN MC SEE COMMENTS Last administered on 13:48; Start 12/10/16 at 13:30 Insulin Aspart (Novolog) 0-9 UNITS TIDWMEALS SQ ; Start 12/10/16 at 12:00 Meropenem/Sodium Chloride (Merrem/Iv Sodium Chloride 0.9% 50ml) 50 ml @ 100 mls /hr DAILY IV Last administered on 12/10/16t 10:17; Start 12/10/16 at 09:00 Ondansetron HCl (Zofran) 4 mg PRN Q6HRS PRN IV NAUSEA/VOMITING; Start 12/10/16 at 09:45 Comment Review of Relevant I have reviewed the following items tyrel (where applicable) has been applied. NILO LEON MD Dec 10, 2016 14:46
--- NOTE | 2016-12-10 14:50 | PDOC ---
Subjective: Subjective: present and says the patient just fell asleep. Objective: Objective: D/w RN - confused, difficult to assess pain. Paracentesis tomorrow. Vital Signs: Vital Signs Date Time Temp Pulse Resp B/P Pulse Ox O2 Delivery O2 Flow Rate FiO2 12/10/16 14:27 102 24 147/87 Nasal Cannula 3.0 12/10/16 07:55 94 12/10/16 04:52 99.7 99.7 Labs: Laboratory Tests Test 12/09/16 17:03 12/09/16 20:36 12/10/16 08:10 12/10/16 12:14 Glucose (Fingerstick) 138mg/dL (70-99) 139mg/dL (70-99) 130mg/dL (70-99) 105mg/dL (70-99) Imaging: CT chest/abd/pelv IMPRESSION: Diffuse soft tissue swelling suggesting a systemic process such as anasarca. Resolution of previously seen groundglass opacity in the right upper lobe. There is, however, a small groundglass opacity seen on today's examination in the left upper lobe. This is probably inflammatory in nature. Increasing bilateral pleural effusions right greater than left. Moderately large amount of abdominal ascites. An acute finding in the abdomen or pelvis is not seen. Abd US IMPRESSION: 1. Status post cholecystectomy. 2. Enlargement of the common hepatic duct. 3. Small right renal cyst. 4. Moderate volume of ascites. 5. Small bilateral pleural effusions. GES IMPRESSION: Significant delay in gastric emptying. PE: GEN: NAD ABD: distended NEURO/PSYCH: asleep A/P: Low albumin Confusion Abd pain Delayed gastric emptying Ascites Pancreatic cancer -- Low albumin 2/2 malignancy. Await paracentesis tomorrow. CLAUDIA WOLF Dec 10, 2016 14:50
--- NOTE | 2016-12-10 16:05 | PDOC2 ---
CONSULT Date of Consult Date of Consult DATE: 12/10/16 TIME: 15:55 Past Medical History Cardiovascular: CAD, CHF, HTN, SC Pulmonary: Bronchitis, COPD Heme/Onc: Cancer Renal/: Chronic renal insuff Past Surgical History Past Surgical History: No pertinent history Family History Family History: No Significant Social History ALCOHOL: none Drugs: None Lives: with Family Current Problem List Problem List Problems Medical Problems: (1) Congestive heart failure Status: Acute Current Medications Current Medications Current Medications Ondansetron HCl (Zofran) 4 mg PRN Q8HRS PRN IV NAUSEA/VOMITING; Start 12/05/16 at 18:45; Stop 12/06/16 at 18:45; Status DC Furosemide 80 mg 80 mg 1X ONCE IVP Last administered on 12/05/16 19:55; Start 12/05/16 at 19:45; Stop 12/05/16 at 19:46; Status DC Sodium Chloride (Iv Sodium Chloride 0.9% 1000ml Bag) 1,000 ml @ 75 mls/hr [id number] IV Last administered on 12/07/16 20:15; Start 12/05/16 at 22:00; Stop 12/07/16 at 20:50; Status DC Albuterol/ Ipratropium (Duoneb) 3 ml RTQID NEB Last administered on 12/10/16 15:42; Start 12/05/16 at 23:00 Oxycodone HCl (Roxicodone) 30 mg PRN Q4HRS PRN PO SEVERE PAIN Last administered on 12/10/16 04:49; Start 12/05/16 at 22:15 Aspirin (Children'S Aspirin) 81 mg DAILYWBKFT PO Last administered on 08:11; Start 12/06/16 at 08:00 Famotidine (Pepcid) 20 mg DAILY PO Last administered on 12/09/16 08:11; Start 12/06/16 at 09:00 Ferrous Sulfate (Feosol) 325 mg DAILYWBKFT PO Last administered on 12/09/16 08 :11; Start 12/06/16 at 08:00 Insulin Aspart (Novolog) 6 units TIDAC SQ Last administered on 12/08/16 09:08 ; Start 12/06/16 at 07:30 Isosorbide Mononitrate (Imdur) 30 mg DAILY PO Last administered on 12/09/16 08 :11; Start 12/06/16 at 09:00 Dextrose 12.5 gm PRN Q15MIN PRN IV SEE COMMENTS; Start 12/05/16 at 23:15; Status Cancel Iohexol (Omnipaque 240 Mg/ml) 30 ml 1X ONCE PO Last administered on 12/06/16 11:43; Start 12/06/16 at 10:30; Stop 12/06/16 at 10:31; Status DC Info (Do NOT chart on this entry -- for MONITORING) 1 each PRN DAILY PRN MC SEE COMMENTS; Start 12/06/16 at 10:30; Stop 12/08/16 at 10:29; Status DC Tamsulosin HCl (Flomax) 0.4 mg QHS PO Last administered on 12/09/16 21:09; Start 12/07/16 at 21:00 Metoclopramide HCl 5 mg 5 mg TIDACHC PO Last administered on 12/09/16 21:10; Start 12/07/16 at 21:00 Albumin Human (Plasmanate) 250 ml @ 62.5 mls/hr 1X ONCE IV Last administered on 12/07/16 21:16; Start 12/07/16 at 21:00; Stop 12/08/16 at 00:59; Status DC Acetaminophen (Tylenol) 325 mg PRN Q6HRS PRN PO MILD PAIN / TEMP; Start at 00:30 Metoprolol Tartrate (Lopressor) 25 mg 1X ONCE PO Last administered on 00:59; Start 12/08/16 at 01:00; Stop 12/08/16 at 01:01; Status DC Metoprolol Succinate (Toprol Xl) 50 mg DAILY PO Last administered on 12/09/16 08:11; Start 12/08/16 at 09:00 Diltiazem HCl (Cardizem) 30 mg PRN Q6HRS PRN PO ELEVATED BP, SEE COMMENTS; Start 12/08/16 at 00:30 Dronabinol 2.5 mg 2.5 mg BIDACLD PO Last administered on 12/09/16 17:05; Start 12/08/16 at 16:30 Piperacillin Sod/ Tazobactam Sod/ Sodium Chloride (Zosyn/Iv Sodium Chloride 0.9 % 50ml) 50 ml @ 100 mls/hr Q8HRS IV Last administered on 12/10/16 04:48; Start 12/08/16 at 18:00; Stop 12/10/16 at 08:26; Status DC Haloperidol Lactate (Haldol) 1 mg 1X ONCE IVP Last administered on 12/10/16 00:30; Start 12/10/16 at 00:30; Stop 12/10/16 at 00:31; Status DC Haloperidol Lactate 2.5 mg 2.5 mg 1X ONCE IVP Last administered on 12/10/16 08:15; Start 12/10/16 at 08:30; Stop 12/10/16 at 08:31; Status DC Meropenem/Sodium Chloride (Merrem/Iv Sodium Chloride 0.9% 50ml) 50 ml @ 100 mls /hr DAILY IV Last administered on 12/10/16 10:17; Start 12/10/16 at 09:00 Haloperidol Lactate (Haldol) 2.5 mg PRN Q4HRS PRN IVP AGITATION Last administered on 12/10/16 12:16; Start 12/10/16 at 09:30 Ondansetron HCl (Zofran) 4 mg PRN Q6HRS PRN IV NAUSEA/VOMITING; Start 12/10/16 at 09:45 Insulin Aspart (Novolog) 0-9 UNITS TIDWMEALS SQ ; Start 12/10/16 at 12:00 Dextrose 12.5 gm 12.5 gm PRN Q15MIN PRN IV SEE COMMENTS; Start 12/10/16 at 09: 45 Albumin Human (Albuminar) 100 ml @ 100 mls/hr 1X ONCE IV Last administered on 12/10/16 14:17; Start 12/10/16 at 12:00; Stop 12/10/16 at 12:59; Status DC Furosemide (Lasix) 40 mg 1X ONCE IVP Last administered on 12/10/16 12:18; Start 12/10/16 at 12:30; Stop 12/10/16 at 12:31; Status DC Albuterol/ Ipratropium (Duoneb) 3 ml RTQID NEB ; Start 12/10/16 at 12:00; Status UNV Info 1 each 1 each PRN DAILY PRN MC SEE COMMENTS Last administered on 15:06; Start 12/10/16 at 13:30 Amino Acids/ Glycerin/ Electrolytes 1,000 ml @ 80 mls/hr [id number] IV Last administered on 12/10/16 14:12; Start 12/10/16 at 14:00; Stop 12/10/16 at 21:59 Sodium Acetate/ Potassium Chloride/ Potassium Phosphate/ Magnesium Sulfate/ Calcium Gluconate/ Multivitamins/ Minerals/Chromium/ Copper/Manganese/ Seleni/Zn /Total Parenteral Nutrition/Amino Acids/Dextrose/ Fat Emulsion Intravenous ( Potassium Phosphate/ Infuvite Mauro... 1,512 ml @ 63 mls/hr TPN CONT IV ; Start 12/10/16 at 22:00; Stop 12/11/16 at 21:59 Active Scripts Active Lasix (Furosemide) 40 Mg Tablet 1 Tab PO DAILY Reported Amlodipine Besylate 5 Mg Tablet 5 Mg PO DAILY Oxycodone Hcl 30 Mg Tablet 1 Tab PO Q4HRS Isosorbide Mononitrate Er (Isosorbide Mononitrate) 30 Mg Tab.er.24h 1 Tab PO DAILY Pepcid (Famotidine) 20 Mg Tablet 20 Mg PO BID Novolog Flexpen (Insulin Aspart) 100 Unit/1 Ml Insuln.pen 6 Unit SQ TIDAC Percocet 5-325 Mg Tablet (Oxycodone/Acetaminophen) 1 Each Tablet 1 Tab PO Q8HRS PRN Metoprolol Succinate 50 Mg Tab.er.24h Isosorbide Mononitrate Er (Isosorbide Mononitrate) 30 Mg Tab.er.24h 30 Mg Reglan (Metoclopramide Hcl) 10 Mg Tablet 10 Mg PO QIDACHS Toprol Xl (Metoprolol Succinate) 50 Mg Tab.er.24h 1 Tab PO BID Aspir 81 (Aspirin) 81 Mg Tablet.dr 1 Tab PO DAILY Imdur (Isosorbide Mononitrate) 30 Mg Tab.er.24h 30 Mg PO DAILY Ferrous Sulfate 325 Mg Tablet 325 Mg PO DAILY Allergies Allergies: Coded Allergies: codeine (Verified Allergy, Intermediate, AMS, 10/25/16) Vitals VITALS Vital Signs Date Time Temp Pulse Resp B/P Pulse Ox O2 Delivery O2 Flow Rate FiO2 12/10/16 15:43 Nasal Cannula 2.0 12/10/16 14:27 102 24 147/87 12/10/16 07:55 94 12/10/16 04:52 99.7 99.7 Labs Labs Laboratory Tests Test 12/08/16 16:52 12/08/16 17:50 12/08/16 20:45 12/09/16 08:09 Glucose (Fingerstick) 91mg/dL (70-99) 124mg/dL (70-99) 97mg/dL (70-99) Influenza Type A Antigen Negative (NEGATIVE) Influenza Type B Antigen Negative (NEGATIVE) Test 12/09/16 09:00 12/09/16 10:56 12/09/16 17:03 12/09/16 20:36 Sodium Level 144mmol/L (136-145) Potassium Level 4.2mmol/L (3.5-5.1) Chloride Level 112mmol/L (98-107) Carbon Dioxide Level 25mmol/L (21-32) Anion Gap 7 (6-14) Blood Urea Nitrogen 40mg/dL (8-26) Creatinine 3.2mg/dL (0.7-1.3) Estimated GFR (Cockcroft-Gault) 23.4 BUN/Creatinine Ratio 13 (6-20) Glucose Level 107mg/dL (70-99) Calcium Level 6.9mg/dL (8.5-10.1) Total Bilirubin 1.0mg/dL (0.2-1.0) Aspartate Amino Transf (AST/SGOT) 57U/L (15-37) Alanine Aminotransferase (ALT/SGPT) 13U/L (16-63) Alkaline Phosphatase 67U/L (46-116) Total Protein 6.6g/dL (6.4-8.2) Albumin 0.9g/dL (3.4-5.0) Albumin/Globulin Ratio 0.2 (1.0-1.7) Prealbumin 3mg/dL (10-36) Glucose (Fingerstick) 104mg/dL (70-99) 138mg/dL (70-99) 139mg/dL (70-99) Test 12/10/16 04:45 12/10/16 08:10 12/10/16 11:45 12/10/16 12:14 White Blood Count 11.2x10^3/uL (4.0-11.0) Red Blood Count 3.15x10^6/uL (4.30-5.70) Hemoglobin 9.4g/dL (13.0-17.5) Hematocrit 28.4% (39.0-53.0) Mean Corpuscular Volume 90fL (79-100) Mean Corpuscular Hemoglobin 30pg (25-35) Mean Corpuscular Hemoglobin Concent 33g/dL (31-37) Red Cell Distribution Width 18.0% (11.5-14.5) Platelet Count 59x10^3/uL (140-400) Neutrophils (%) (Auto) 72% (31-73) Lymphocytes (%) (Auto) 18% (24-48) Monocytes (%) (Auto) 10% (0-9) Eosinophils (%) (Auto) 0% (0-3) Basophils (%) (Auto) 0% (0-3) Neutrophils # (Auto) 8.1x10^3uL (1.8-7.7) Lymphocytes # (Auto) 2.0x10^3/uL (1.0-4.8) Monocytes # (Auto) 1.1x10^3/uL (0.0-1.1) Eosinophils # (Auto) 0.0x10^3/uL (0.0-0.7) Basophils # (Auto) 0.0x10^3/uL (0.0-0.2) Sodium Level 140mmol/L (136-145) Potassium Level 4.4mmol/L (3.5-5.1) Chloride Level 108mmol/L (98-107) Carbon Dioxide Level 19mmol/L (21-32) Anion Gap 13 (6-14) Blood Urea Nitrogen 43mg/dL (8-26) Creatinine 3.9mg/dL (0.7-1.3) Estimated GFR (Cockcroft-Gault) 18.6 Glucose Level 122mg/dL (70-99) Calcium Level 7.1mg/dL (8.5-10.1) Glucose (Fingerstick) 130mg/dL (70-99) 105mg/dL (70-99) Prothrombin Time 25.3SEC (11.7-14.0) Prothromb Time International Ratio 2.5 (0.8-1.1) Activated Partial Thromboplast Time 50SEC (24-38) Ammonia 25mcmol/L (11-34) Laboratory Tests Test 12/09/16 17:03 12/09/16 20:36 12/10/16 04:45 12/10/16 08:10 Glucose (Fingerstick) 138mg/dL (70-99) 139mg/dL (70-99) 130mg/dL (70-99) White Blood Count 11.2x10^3/uL (4.0-11.0) Red Blood Count 3.15x10^6/uL (4.30-5.70) Hemoglobin 9.4g/dL (13.0-17.5) Hematocrit 28.4% (39.0-53.0) Mean Corpuscular Volume 90fL (79-100) Mean Corpuscular Hemoglobin 30pg (25-35) Mean Corpuscular Hemoglobin Concent 33g/dL (31-37) Red Cell Distribution Width 18.0% (11.5-14.5) Platelet Count 59x10^3/uL (140-400) Neutrophils (%) (Auto) 72% (31-73) Lymphocytes (%) (Auto) 18% (24-48) Monocytes (%) (Auto) 10% (0-9) Eosinophils (%) (Auto) 0% (0-3) Basophils (%) (Auto) 0% (0-3) Neutrophils # (Auto) 8.1x10^3uL (1.8-7.7) Lymphocytes # (Auto) 2.0x10^3/uL (1.0-4.8) Monocytes # (Auto) 1.1x10^3/uL (0.0-1.1) Eosinophils # (Auto) 0.0x10^3/uL (0.0-0.7) Basophils # (Auto) 0.0x10^3/uL (0.0-0.2) Sodium Level 140mmol/L (136-145) Potassium Level 4.4mmol/L (3.5-5.1) Chloride Level 108mmol/L (98-107) Carbon Dioxide Level 19mmol/L (21-32) Anion Gap 13 (6-14) Blood Urea Nitrogen 43mg/dL (8-26) Creatinine 3.9mg/dL (0.7-1.3) Estimated GFR (Cockcroft-Gault) 18.6 Glucose Level 122mg/dL (70-99) Calcium Level 7.1mg/dL (8.5-10.1) Test 12/10/16 11:45 12/10/16 12:14 Prothrombin Time 25.3SEC (11.7-14.0) Prothromb Time International Ratio 2.5 (0.8-1.1) Activated Partial Thromboplast Time 50SEC (24-38) Ammonia 25mcmol/L (11-34) Glucose (Fingerstick) 105mg/dL (70-99) Assessment/Plan Assessment/Plan DATE OF CONSULTATION: 12/10/2016 REFERRING PROVIDER: Dr. Rascon. REASON FOR CONSULTATION: Pancreatic cancer and ascites. HISTORY OF PRESENT ILLNESS: The patient is a 71-year-old male treated by Dr. Desean Silveira at [facility] for his pancreatic cancer. He was diagnosed in 2012 with T3N0M0, stage II pancreatic cancer. 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 His disease remained stable for quite some time; however, he had recurrent heart failure in May and ultimately it was thought to be a potential side effect of the Gemzar, therefore, this medication was also discontinued with his last dose being 05/22/2016. He was last seen by Dr. Silveira 09/17/2016. Previously, it was discussed with him to potentially try palliative 5-FU or Xeloda chemotherapy. He was concerned about his ability to take the pills, but he also had difficulty with compliance with the pump. His last dose of 5-FU chemotherapy was 06/12/2016. He has been on supportive care since that time. He had a scan at [facility] 10/01/2016, which showed no evidence of pancreatic cancer. There were no new metastatic lesions. However, there was pleural effusion and suggestion of heart failure. He had redemonstration of diffuse mesenteric congestion and ascites. His liver enzymes had been noted to be elevated, thought to be due to this congestion or hepatitis. He was admitted 12/05/2016 for Acute hypoxic respiratory failure PAST MEDICAL HISTORY: Diabetes, stroke, hypertension, pancreatic cancer, heart disease, status post SC, hyperlipidemia, atrial fibrillation, hepatitis B/C, neuropathy, heart failure. PAST SURGICAL HISTORY: Pancreatic surgery, CABG, cholecystectomy, pacemaker placement. FAMILY HISTORY: Mom with hypertension. SOCIAL HISTORY: Still smoking, no alcohol use. REVIEW OF SYSTEMS: Ten point review of systems completed and remarkable for balance problems; chronic shortness of breath, unchanged; chronic lower extremity edema, rest neg. PHYSICAL EXAMINATION: Gen - no cardiopulm distress VITAL SIGNS: reviewed GENERAL: He is alert and oriented and in no apparent distress. HEENT: Extraocular muscle strength is intact. Mucous membranes are moist. CARDIOVASCULAR: Heart is regular in rhythm and rate. LUNGS: Clear to auscultation bilaterally. ABDOMEN: Distended, soft. EXTREMITIES: edema bilateral lower extremities. NEUROLOGIC: No focal deficits. Lymph - no lymphadenopathy Musculoskeletal- no joint effusions. IMAGING/LABORATORY: CT C/A/P 12/06/2016 - no evidence of malignancy Labs - CA 19-19 on 12/06/2016is better at 229. ASSESSMENT AND PLAN: 1. Pancreatic cancer. Scans had to be performed at and [facility] do not show any progression in his disease despite being off any therapy for a few months. CT C/A/P 12/06/2016 - no evidence of malignancy and CA 19-19 on 12/06/2016is better at 229. He could not restart 5-FU therapy due to thrombocytopenia, renal failure, poor functional status. I will continue with supportive care at this time. He is not a candidate for chemo. 2. Ascites - agree to proceed with diagnostic and therapeutic paracentesis, I d/ w Dr Rascon. 3. chronic kidney disease TAVARES JEAN BAPTISTE MD Dec 10, 2016 16:05
[2016-12-10 19:45] VITALS: BP 117/61
[2016-12-10] MEDS: TAMSULOSIN 0.4 MG CAP.ER.24H. PO SCH (20:27)
--- NOTE | 2016-12-10 21:59 | PDOC ---
Provider Note Provider Note He has been persistantly agitated for the last 2 days. He has been give IV Haldoland has had no ora; intake for the last 2 days. Afebrile, vitals stableALungs clear Abdomen distended. Finnegan reinserte for urinary retention Subspeciality consults appreciated Will D/W Gastro re liver status D/W Neuro regarding prognosis forc resplution of encephalopathy Bienvenido gann Ativan to see if it would wotk better. MAYRA REYNOLDS MD Dec 10, 2016 21:59
[2016-12-10] MEDS ORDERED: PHYTONADIONE 5 MG TABLET PO ONE (22:00)
[2016-12-10] MEDS ORDERED: TOTAL PARENTERAL NUTRITION 1,402.4987 ML, AMINO ACIDS 10 % 60 GM, DEXTROSE 70 % IN WATE... IV SCH ×10 (22:00)
[2016-12-10 22:09] LABS: HEP A IGM ABDY Negative (Negative)
[2016-12-10 22:21] VITALS: BP 121/70
[2016-12-10] MEDS: LORAZEPAM 2 MG/ML VIAL IV PRN (22:29)
[2016-12-11] VITALS (14 sets, daily range): BP systolic 90–136; BP diastolic 48–62
[2016-12-11] MEDS: INSULIN ASPART 300 UNITS/3 ML INSULN.PEN SQ SCH ×6 (07:30→17:00)
[2016-12-11] MEDS: METOCLOPRAMIDE HCL 10 MG/10 ML SOLUTION. PO SCH ×2 (07:30→11:30)
[2016-12-11] MEDS: IPRATRPIUM/ALBUTEROL 0.5/2.5MG 3 ML NEBU. NEB SCH ×4 (07:48→19:13)
[2016-12-11] MEDS: FERROUS SULFATE 325 MG TABLET PO SCH (08:00)
[2016-12-11] MEDS: ASPIRIN 81 MG TAB.CHEW PO SCH (08:00)
--- NOTE | 2016-12-11 08:07 | PDOC ---
Infectious Disease Note Subjective Subjective S/p Ativan ROS ROS Unobtainable Vital Sign Vital Signs Vital Signs Date Time Temp Pulse Resp B/P Pulse Ox O2 Delivery O2 Flow Rate FiO2 12/11/16 07:54 Nasal Cannula 2.0 12/11/16 06:45 97.6 99 24 96/58 97.6 12/11/16 02:06 97 Physical Exam PHYSICAL EXAM GENERAL: NAD HENT: Normal conjunctivae. PERRLA, Oral cavity pink, dry LUNGS: Fine crackles bases. Nonlabored. On O2 NC. HEART: Normal S1 S2. Pacemaker ABDOMEN: Distended, BS present, soft, nontender : Finnegan EXTREMITIES: No gross pitting edema. No cyanosis SKIN: without rash NEUROLOGICAL: Sedated Port-a-cath. clean Labs Lab Laboratory Tests Test 12/10/16 08:10 12/10/16 11:45 12/10/16 12:14 12/10/16 18:36 Glucose (Fingerstick) 130mg/dL (70-99) 105mg/dL (70-99) 91mg/dL (70-99) Prothrombin Time 25.3SEC (11.7-14.0) Prothromb Time International Ratio 2.5 (0.8-1.1) Activated Partial Thromboplast Time 50SEC (24-38) Ammonia 25mcmol/L (11-34) Test 12/10/16 21:26 12/10/16 23:00 Glucose (Fingerstick) 66mg/dL (70-99) 93mg/dL (70-99) Micro Escherichia coli Greater than 100,000 colony forming units per mL ANTIMICROBIAL SUSCEPTIBILITY Final Comment S = Susceptible; I = Intermediate; R = Resistant P = Positive; N = Negative MICS are expressed in micrograms per mL Antibiotic RSLT#1 RSLT#2 RSLT#3 RSLT#4 Amoxicillin/Clavulanic Acid S Ampicillin S Cefepime S Ceftriaxone S Cefuroxime S Cephalothin S Ciprofloxacin S Ertapenem S Gentamicin S Imipenem S Levofloxacin S Nitrofurantoin S Piperacillin S Tetracycline S Tobramycin S Trimethoprim/Sulfa S Objective Assessment Encephalopathy Fever - better Leukocytosis ? HCAP - pleural effusions -Influenza neg UTI. Ecoli POA 12/08 Ascites Gastroparesis CHF MONICA on CKD Pancreatic cancer Sinus disease Plan Plan of Care Cont Meropenem Paracentesis today f/u cultures/labs Repeat CXR Labs in am Renal consult KATHIE SANDOVAL MD Dec 11, 2016 08:07
--- NOTE | 2016-12-11 08:59 | PDOC ---
Provider Note Provider Note DATE OF f/u: 12/11/2016 c/c: Pancreatic cancer and ascites. HISTORY OF PRESENT ILLNESS: The patient is a 71-year-old male treated by Dr. Desean Silveira at [facility] for his pancreatic cancer. He was diagnosed in 2012 with T3N0M0, stage II pancreatic cancer. 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 His disease remained stable for quite some time; however, he had recurrent heart failure in May and ultimately it was thought to be a potential side effect of the Gemzar, therefore, this medication was also discontinued with his last dose being 05/22/2016. He was last seen by Dr. Silveira 09/17/2016. Previously, it was discussed with him to potentially try palliative 5-FU or Xeloda chemotherapy. He was concerned about his ability to take the pills, but he also had difficulty with compliance with the pump. His last dose of 5-FU chemotherapy was 06/12/2016. He has been on supportive care since that time. He had a scan at [facility] 10/01/2016, which showed no evidence of pancreatic cancer. There were no new metastatic lesions. However, there was pleural effusion and suggestion of heart failure. He had redemonstration of diffuse mesenteric congestion and ascites. His liver enzymes had been noted to be elevated, thought to be due to this congestion or hepatitis. He was admitted 12/05/2016 for Acute hypoxic respiratory failure PAST MEDICAL HISTORY: Diabetes, stroke, hypertension, pancreatic cancer, heart disease, status post [place], hyperlipidemia, atrial fibrillation, hepatitis B/C, neuropathy, heart failure. REVIEW OF SYSTEMS: pt sleeping s/p ativan PHYSICAL EXAMINATION: Gen - no cardiopulm distress VITAL SIGNS: reviewed ABDOMEN: Distended, soft. IMAGING/LABORATORY: CT C/A/P 12/06/2016 - no evidence of malignancy Labs - CA 19-19 on 12/06/2016is better at 229. ASSESSMENT AND PLAN: 1. Pancreatic cancer. Scans had to be performed at and [facility] do not show any progression in his disease despite being off any therapy for a few months. CT C/A/P 12/06/2016 - no evidence of malignancy and CA 19-19 on 1/19/2017is better at 229. He could not restart 5-FU therapy due to thrombocytopenia, renal failure, poor functional status. I will continue with supportive care at this time. He is not a candidate for chemo. 2. Ascites - agree to proceed with diagnostic and therapeutic paracentesis, I d/ w Dr Rascon. 3. chronic kidney disease 4. Thrombocytopenia - Platelets worse at 59. Monitor. TAVARES JEAN BAPTISTE MD Dec 11, 2016 08:59
[2016-12-11] MEDS: ISOSORBIDE MONONITRATE ER 30 MG TAB.ER.24H PO SCH (09:00)
[2016-12-11] MEDS: METOPROLOL SUCC 24HR ER 50 MG TAB.ER.24H. PO SCH (09:00)
[2016-12-11] MEDS: FAMOTIDINE 20 MG TABLET. PO SCH (09:00)
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
--- NOTE | 2016-12-11 09:15 | PDOC ---
Subjective: Subjective: Pt asleep. Objective: Objective: Per RN - has been asleep this shift, receiving FPP prior to rechecking INR before paracentesis. Vital Signs: Vital Signs Date Time Temp Pulse Resp B/P Pulse Ox O2 Delivery O2 Flow Rate FiO2 12/11/16 08:59 97.5 71 12 90/54 97.5 12/11/16 07:54 Nasal Cannula 2.0 12/11/16 07:00 96 Labs: Laboratory Tests Test 12/10/16 11:45 12/10/16 12:14 12/10/16 18:36 12/10/16 21:26 Prothrombin Time 25.3SEC Prothromb Time International Ratio 2.5 Activated Partial Thromboplast Time 50SEC Ammonia 25mcmol/L Glucose (Fingerstick) 105mg/dL 91mg/dL 66mg/dL Test 12/10/16 23:00 12/11/16 07:38 Glucose (Fingerstick) 93mg/dL 147mg/dL Imaging: Abd US 12/08/16 IMPRESSION: 1. Status post cholecystectomy. 2. Enlargement of the common hepatic duct. 3. Small right renal cyst. 4. Moderate volume of ascites. 5. Small bilateral pleural effusions PE: GEN: NAD LUNGS: nasal cannula HEART: RRR ABD: distended/ascites NEURO/PSYCH: asleep, did not awaken A/P: Hypoalbuminemia 2/2 pancreatic cancer Abd pain -chronic -delayed gastric emptying Ascites -paracentesis held w/ elevated INR Hepatitis -B, C -LFTs last checked 12/09 - bili was normal Confusion -- Await INR after FPP, hopefully can have paracentesis soon. Not a good candidate for Hep treatment w/ panc malignancy - will review w/ Dr. Ortiz. CLAUDIA WOLF Dec 11, 2016 09:14
--- NOTE | 2016-12-11 09:20 | RAD ---
Indication: Pneumonia. Time of exam 0907 hours. Comparison is made with prior chest from 12/08/2016. Changes of median sternotomy are noted. The cardiac pacemaker and right-sided line remain in place. Moderate right effusion and right-sided infiltrate persists but may be mildly improved. There is central congestion noted. There is a small left effusion as well. No pneumothorax is detected. Impression: Central congestion with bilateral effusions and right-sided infiltrate, similar to perhaps slightly improved when compared with exam 3 days earlier.
[2016-12-11] MEDS: LORAZEPAM 2 MG/ML VIAL IV PRN ×2 (09:47→13:02)
[2016-12-11 10:16] LABS: PROTHROMBIN TIME PATIENT 21.8 SEC (11.7-14.0)
[2016-12-11 10:19] LABS: BASO % 0 % (0-3); EOS % 0 % (0-3); HEMATOCRIT 22.4 % (39.0-53.0); HEMOGLOBIN 7.4 g/dL (13.0-17.5); LYMPH # 2.1 x10^3/uL (1.0-4.8); LYMPH % 18 % (24-48); MEAN CORPUSCULAR HEMOGLOBIN 30 pg (25-35); MEAN CORPUSCULAR HGB CONC 33 g/dL (31-37); MEAN CORPUSCULAR VOLUME 91 fL (79-100); MONO % 9 % (0-9); NEUT % 73 % (31-73); PLATELET COUNT 57 x10^3/uL (140-400); RED BLOOD COUNT 2.47 x10^6/uL (4.30-5.70); RED CELL DISTRIBUTION WIDTH 17.6 % (11.5-14.5)
[2016-12-11 10:23] LABS: PHOSPHORUS 5.6 mg/dL (2.6-4.7)
--- NOTE | 2016-12-11 10:25 | PDOC2 ---
CONSULT Date of Consult Date of Consult DATE: 12/11/16 TIME: 10:19 Reason for Consult Reason for Consult: MONICA Referring Physician Referring Physician: RODOLFO Identification/Chief Complaint Chief Complaint SOB Source Source: Chart review History of Present Illness Reason for Visit: THIS IS A 71 YR WITH MULTIPLE MEDICAL PROBLEMS. HE HAS PANCREATIC CANCER FOR WHICH HE HAS RECEIVED GEMZAR. HE HAS HEP B AND C AND HAS INCREASED LFT'S. HE HAS CHF, ASCITES AND DECONDITIONING. HE HAS CKD STAGE 3 WITH A CR OF 2.0 IN EARLY OCTOBER 2016. SINCE THEN CR HAS BEEN AROUND 3.5. HE HAS ALSO HAD URINARY RETENTION WITH A RESIDUAL OF ABOUT 700MLS ON ADMIT AND HE HAS BEEN SEEN BY UROLOGY AND THE BLADDER WAS DECOMPRESSED WITH A RÍOS. NOT EATING WELL AND CURRENTLY ON TPN. CANCER MARKERS HAVE BEEN UP Past Medical History Cardiovascular: CAD, CHF, HTN, DE Pulmonary: Bronchitis, COPD Heme/Onc: Cancer Renal/: Chronic renal insuff Past Surgical History Past Surgical History: No pertinent history Family History Family History: No Significant Social History ALCOHOL: none Drugs: None Lives: with Family Current Problem List Problem List Problems Medical Problems: (1) Congestive heart failure Status: Acute Current Medications Current Medications Current Medications Ondansetron HCl (Zofran) 4 mg PRN Q8HRS PRN IV NAUSEA/VOMITING; Start 12/05/16 at 18:45; Stop 12/06/16 at 18:45; Status DC Furosemide 80 mg 80 mg 1X ONCE IVP Last administered on 12/05/16 19:55; Start 12/05/16 at 19:45; Stop 12/05/16 at 19:46; Status DC Sodium Chloride (Iv Sodium Chloride 0.9% 1000ml Bag) 1,000 ml @ 75 mls/hr [id number] IV Last administered on 12/07/16 20:15; Start 12/05/16 at 22:00; Stop 12/07/16 at 20:50; Status DC Albuterol/ Ipratropium (Duoneb) 3 ml RTQID NEB Last administered on 12/11/16 07:48; Start 12/05/16 at 23:00 Oxycodone HCl (Roxicodone) 30 mg PRN Q4HRS PRN PO SEVERE PAIN Last administered on 12/10/16 20:28; Start 12/05/16 at 22:15 Aspirin (Children'S Aspirin) 81 mg DAILYWBKFT PO Last administered on 08:11; Start 12/06/16 at 08:00 Famotidine (Pepcid) 20 mg DAILY PO Last administered on 12/09/16 08:11; Start 12/06/16 at 09:00 Ferrous Sulfate (Feosol) 325 mg DAILYWBKFT PO Last administered on 12/09/16 08 :11; Start 12/06/16 at 08:00 Insulin Aspart (Novolog) 6 units TIDAC SQ Last administered on 12/08/16 09:08 ; Start 12/06/16 at 07:30 Isosorbide Mononitrate (Imdur) 30 mg DAILY PO Last administered on 12/09/16 08 :11; Start 12/06/16 at 09:00 Dextrose 12.5 gm PRN Q15MIN PRN IV SEE COMMENTS; Start 12/05/16 at 23:15; Status Cancel Iohexol (Omnipaque 240 Mg/ml) 30 ml 1X ONCE PO Last administered on 12/06/16 11:43; Start 12/06/16 at 10:30; Stop 12/06/16 at 10:31; Status DC Info (Do NOT chart on this entry -- for MONITORING) 1 each PRN DAILY PRN MC SEE COMMENTS; Start 12/06/16 at 10:30; Stop 12/08/16 at 10:29; Status DC Tamsulosin HCl (Flomax) 0.4 mg QHS PO Last administered on 12/10/16 20:27; Start 12/07/16 at 21:00 Metoclopramide HCl 5 mg 5 mg TIDACHC PO Last administered on 12/09/16 21:10; Start 12/07/16 at 21:00 Albumin Human (Plasmanate) 250 ml @ 62.5 mls/hr 1X ONCE IV Last administered on 12/07/16 21:16; Start 12/07/16 at 21:00; Stop 12/08/16 at 00:59; Status DC Acetaminophen (Tylenol) 325 mg PRN Q6HRS PRN PO MILD PAIN / TEMP; Start at 00:30 Metoprolol Tartrate (Lopressor) 25 mg 1X ONCE PO Last administered on 00:59; Start 12/08/16 at 01:00; Stop 12/08/16 at 01:01; Status DC Metoprolol Succinate (Toprol Xl) 50 mg DAILY PO Last administered on 12/09/16 08:11; Start 12/08/16 at 09:00 Diltiazem HCl (Cardizem) 30 mg PRN Q6HRS PRN PO ELEVATED BP, SEE COMMENTS; Start 12/08/16 at 00:30 Dronabinol 2.5 mg 2.5 mg BIDACLD PO Last administered on 12/09/16 17:05; Start 12/08/16 at 16:30 Piperacillin Sod/ Tazobactam Sod/ Sodium Chloride (Zosyn/Iv Sodium Chloride 0.9 % 50ml) 50 ml @ 100 mls/hr Q8HRS IV Last administered on 12/10/16 04:48; Start 12/08/16 at 18:00; Stop 12/10/16 at 08:26; Status DC Haloperidol Lactate (Haldol) 1 mg 1X ONCE IVP Last administered on 12/10/16 00:30; Start 12/10/16 at 00:30; Stop 12/10/16 at 00:31; Status DC Haloperidol Lactate 2.5 mg 2.5 mg 1X ONCE IVP Last administered on 12/10/16 08:15; Start 12/10/16 at 08:30; Stop 12/10/16 at 08:31; Status DC Meropenem/Sodium Chloride (Merrem/Iv Sodium Chloride 0.9% 50ml) 50 ml @ 100 mls /hr DAILY IV Last administered on 12/10/16 10:17; Start 12/10/16 at 09:00 Haloperidol Lactate (Haldol) 2.5 mg PRN Q4HRS PRN IVP AGITATION Last administered on 12/10/16 20:28; Start 12/10/16 at 09:30; Stop 12/10/16 at 21:49 ; Status DC Ondansetron HCl (Zofran) 4 mg PRN Q6HRS PRN IV NAUSEA/VOMITING; Start 12/10/16 at 09:45 Insulin Aspart (Novolog) 0-9 UNITS TIDWMEALS SQ ; Start 12/10/16 at 12:00 Dextrose 12.5 gm 12.5 gm PRN Q15MIN PRN IV SEE COMMENTS Last administered on 22:45; Start 12/10/16 at 09:45 Albumin Human (Albuminar) 100 ml @ 100 mls/hr 1X ONCE IV Last administered on 12/10/16 14:17; Start 12/10/16 at 12:00; Stop 12/10/16 at 12:59; Status DC Furosemide (Lasix) 40 mg 1X ONCE IVP Last administered on 12/10/16 12:18; Start 12/10/16 at 12:30; Stop 12/10/16 at 12:31; Status DC Albuterol/ Ipratropium (Duoneb) 3 ml RTQID NEB ; Start 12/10/16 at 12:00; Status UNV Info 1 each 1 each PRN DAILY PRN MC SEE COMMENTS Last administered on 15:06; Start 12/10/16 at 13:30 Amino Acids/ Glycerin/ Electrolytes 1,000 ml @ 80 mls/hr [id number] IV Last administered on 12/10/16 14:12; Start 12/10/16 at 14:00; Stop 12/10/16 at 21:59 ; Status DC Sodium Acetate/ Potassium Chloride/ Potassium Phosphate/ Magnesium Sulfate/ Calcium Gluconate/ Multivitamins/ Minerals/Chromium/ Copper/Manganese/ Seleni/Zn /Total Parenteral Nutrition/Amino Acids/Dextrose/ Fat Emulsion Intravenous ( Potassium Phosphate/ Infuvite Mauro... 1,512 ml @ 63 mls/hr TPN CONT IV Last administered on 12/10/16 21:45; Start 12/10/16 at 22:00; Stop 12/11/16 at 21:59 Haloperidol Lactate (Haldol) 2.5 mg 1X ONCE IVP Last administered on 18:36; Start 12/10/16 at 19:00; Stop 12/10/16 at 19:01; Status DC Phytonadione (Mephyton) 2.5 mg 1X ONCE PO Last administered on 12/10/16 22:35 ; Start 12/10/16 at 22:00; Stop 12/10/16 at 22:01; Status DC Lorazepam (Ativan) 0.25 mg PRN Q4HRS PRN IV ANXIETY / AGITATION Last administered on 12/11/16t 09:47; Start 12/10/16 at 22:00 Active Scripts Active Lasix (Furosemide) 40 Mg Tablet 1 Tab PO DAILY Reported Amlodipine Besylate 5 Mg Tablet 5 Mg PO DAILY Oxycodone Hcl 30 Mg Tablet 1 Tab PO Q4HRS Isosorbide Mononitrate Er (Isosorbide Mononitrate) 30 Mg Tab.er.24h 1 Tab PO DAILY Pepcid (Famotidine) 20 Mg Tablet 20 Mg PO BID Novolog Flexpen (Insulin Aspart) 100 Unit/1 Ml Insuln.pen 6 Unit SQ TIDAC Percocet 5-325 Mg Tablet (Oxycodone/Acetaminophen) 1 Each Tablet 1 Tab PO Q8HRS PRN Metoprolol Succinate 50 Mg Tab.er.24h Isosorbide Mononitrate Er (Isosorbide Mononitrate) 30 Mg Tab.er.24h 30 Mg Reglan (Metoclopramide Hcl) 10 Mg Tablet 10 Mg PO QIDACHS Toprol Xl (Metoprolol Succinate) 50 Mg Tab.er.24h 1 Tab PO BID Aspir 81 (Aspirin) 81 Mg Tablet.dr 1 Tab PO DAILY Imdur (Isosorbide Mononitrate) 30 Mg Tab.er.24h 30 Mg PO DAILY Ferrous Sulfate 325 Mg Tablet 325 Mg PO DAILY Allergies Allergies: Coded Allergies: codeine (Verified Allergy, Intermediate, AMS, 10/25/16) ROS Review of System CONFUSED Physical Exam General: Alert, Cooperative HEENT: Atraumatic, PERRLA, EOMI Lungs: Other (DECREASED AT BASES) Heart: Regular rate, Normal S1, Normal S2 Abdomen: Normal bowel sounds, Soft, Other (SOME ASCITES) Extremities: No clubbing, No cyanosis, No edema Neuro: Other (SOME CONFUSION) Psych/Mental Status: Other (FLAT AFFECT) MUSCULOSKELETAL: No swelling, Other (SOME ATROPHY) Vitals VITALS Vital Signs Date Time Temp Pulse Resp B/P Pulse Ox O2 Delivery O2 Flow Rate FiO2 12/11/16 08:59 97.5 71 12 90/54 97.5 12/11/16 07:54 Nasal Cannula 2.0 12/11/16 07:00 96 Labs Labs Laboratory Tests Test 12/09/16 10:56 12/09/16 17:03 12/09/16 20:36 12/10/16 04:45 Glucose (Fingerstick) 104mg/dL (70-99) 138mg/dL (70-99) 139mg/dL (70-99) White Blood Count 11.2x10^3/uL (4.0-11.0) Red Blood Count 3.15x10^6/uL (4.30-5.70) Hemoglobin 9.4g/dL (13.0-17.5) Hematocrit 28.4% (39.0-53.0) Mean Corpuscular Volume 90fL (79-100) Mean Corpuscular Hemoglobin 30pg (25-35) Mean Corpuscular Hemoglobin Concent 33g/dL (31-37) Red Cell Distribution Width 18.0% (11.5-14.5) Platelet Count 59x10^3/uL (140-400) Neutrophils (%) (Auto) 72% (31-73) Lymphocytes (%) (Auto) 18% (24-48) Monocytes (%) (Auto) 10% (0-9) Eosinophils (%) (Auto) 0% (0-3) Basophils (%) (Auto) 0% (0-3) Neutrophils # (Auto) 8.1x10^3uL (1.8-7.7) Lymphocytes # (Auto) 2.0x10^3/uL (1.0-4.8) Monocytes # (Auto) 1.1x10^3/uL (0.0-1.1) Eosinophils # (Auto) 0.0x10^3/uL (0.0-0.7) Basophils # (Auto) 0.0x10^3/uL (0.0-0.2) Sodium Level 140mmol/L (136-145) Potassium Level 4.4mmol/L (3.5-5.1) Chloride Level 108mmol/L (98-107) Carbon Dioxide Level 19mmol/L (21-32) Anion Gap 13 (6-14) Blood Urea Nitrogen 43mg/dL (8-26) Creatinine 3.9mg/dL (0.7-1.3) Estimated GFR (Cockcroft-Gault) 18.6 Glucose Level 122mg/dL (70-99) Calcium Level 7.1mg/dL (8.5-10.1) Test 12/10/16 08:10 12/10/16 11:45 12/10/16 12:14 12/10/16 18:36 Glucose (Fingerstick) 130mg/dL (70-99) 105mg/dL (70-99) 91mg/dL (70-99) Prothrombin Time 25.3SEC (11.7-14.0) Prothromb Time International Ratio 2.5 (0.8-1.1) Activated Partial Thromboplast Time 50SEC (24-38) Ammonia 25mcmol/L (11-34) Test 12/10/16 21:26 12/10/16 23:00 12/11/16 07:38 12/11/16 10:00 Glucose (Fingerstick) 66mg/dL (70-99) 93mg/dL (70-99) 147mg/dL (70-99) Prothrombin Time 21.8SEC (11.7-14.0) Prothromb Time International Ratio 2.0 (0.8-1.1) Laboratory Tests Test 12/10/16 11:45 12/10/16 12:14 12/10/16 18:36 12/10/16 21:26 Prothrombin Time 25.3SEC (11.7-14.0) Prothromb Time International Ratio 2.5 (0.8-1.1) Activated Partial Thromboplast Time 50SEC (24-38) Ammonia 25mcmol/L (11-34) Glucose (Fingerstick) 105mg/dL (70-99) 91mg/dL (70-99) 66mg/dL (70-99) Test 12/10/16 23:00 12/11/16 07:38 12/11/16 10:00 Glucose (Fingerstick) 93mg/dL (70-99) 147mg/dL (70-99) Prothrombin Time 21.8SEC (11.7-14.0) Prothromb Time International Ratio 2.0 (0.8-1.1) Assessment/Plan Assessment/Plan IMP CHF PANCREATIC CA INCREASED LFTS ANEMIA DECONDITIONING CKD STAGE 3 TO 4-WITH CR ABOUT 2.0 AT BASELINE [place] WITH CR OF 3.5 MALNUTRITION PLAN TPN SUPPORTIVE CARE CONSIDER HOSPICE WILL FOLLOW NEEDED D/W CYNTHIA DALEY MD Dec 11, 2016 10:25
[2016-12-11 10:36] LABS: ALBUMIN 1.6 g/dL (3.4-5.0); ALBUMIN/GLOBULIN RATIO 0.3 (1.0-1.7); CALCIUM 7.6 mg/dL (8.5-10.1); CREATININE 4.4 mg/dL (0.7-1.3); GFR 16.2; POTASSIUM 4.5 mmol/L (3.5-5.1); TOTAL BILIRUBIN 1.3 mg/dL (0.2-1.0); TOTAL PROTEIN 7.5 g/dL (6.4-8.2)
[2016-12-11] MEDS: MEROPENEM 500 MG in IV NORMAL SALINE 50ML 50 ML IV SCH (11:13)
[2016-12-11] MEDS: DRONABINOL 2.5 MG CAPSULE PO SCH (11:30)
[2016-12-11] MEDS: TPN PER PHARMACY MC PRN (13:00)
--- NOTE | 2016-12-11 14:06 | PDOC ---
PROGRESS NOTES Assessment Assessment Metabolic encephalopathy. CHF UTI Pancreatic cancer, s/p chemo. 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 RECOMMENDATIONS/PLAN: Continue ASA daily. Treat medical diseases. EEG HCT 12/09: No new findings except old CVA. PAST MEDICAL AND SURGICAL HISTORY: Please see H&P ALLERGY: Reviewed. MEDICATIONS: Refer to MAR REVIEW OF SYSTEMS: Constitutional: Malnutrition. Head: No recent traumatic brain or head injury. Skin: No edema, or rash. Ear: No infection, tinnitus. Eyes: No vision loss, or diplopia. Nose: No bleeding or purulent discharges. Hearing: Hearing decrease. Neck: No injury. Cardiac: No VA, arrhythmia Pulmonary: No COPD. GI: Pancreatic cancer. Urinary/genital: UTI. Endocrine: Diabetes Mellitus. Skeletomuscular: No muscular atrophy, deformity. Neurological: see HP. Psychiatric: Denies current drug use/abuse. Otherwise, not [id number] review of systems. PHYSICAL EXAMINATION: General appearance is lethargic.. HEENT: Normocephalic and nontraumatic. Eyes, nose, ears, and throat are unremarkable. Neck is supple. No lymphadenopathy. No bruits are heard over the carotid artery. No Crepitus. Cardiovascular: S1, S2, regular rate and rhythm. Pulmonary: relative clear to auscultation bilaterally. Abdomen: Bowel sounds are positive. Extremities: No rash, lesions, or edema. No restriction of range of motion NEUROLOGICAL EXAMINATION: Lethargic. Unable to communicate nor follow commands. Not oriented to time, place and person. PERRL. EOMI not elicited due to decreased mentation. CN: no focal findings. Muscle tone: fluctuated. Muscle strength: 4- DTR: 1-2 Plantar reflex: Neutral response bilaterally Gait: not examined in bed. Sensory exam: not able to follow commands. Not able to access cerebellar signs elicited. Objective Objective Vital Signs Date Time Temp Pulse Resp B/P Pulse Ox O2 Delivery O2 Flow Rate FiO2 12/11/16 11:28 96 Nasal Cannula 2.0 12/11/16 10:45 97.6 83 17 99/56 97.6 Intake and Output 12/11/16 07:00 Intake Total 1050 ml Output Total 350 ml Balance 700 ml Intake Oral 50 ml IV Total 400 ml Blood Product 300 ml Blood Product IV Normal Saline Flush 300 ml Output Urine Total 350 ml Vitals Signs Vitals VS - Last 72 Hours, by Label Date Time Temp Pulse Resp B/P Pulse Ox O2 Delivery O2 Flow Rate FiO2 12/11/16 11:28 96 Nasal Cannula 2.0 12/11/16 10:45 97.6 83 17 99/56 Nasal Cannula 97.6 12/11/16 08:59 97.5 71 12 90/54 97.5 12/11/16 08:00 Nasal Cannula 2.0 12/11/16 07:54 Nasal Cannula 2.0 12/11/16 07:00 97.7 89 16 103/59 96 Nasal Cannula 97.7 12/11/16 06:45 97.6 99 24 96/58 97.6 12/11/16 05:57 97.6 81 22 109/59 97.6 12/11/16 05:35 97.6 88 22 102/60 97.6 12/11/16 04:30 97.6 100 22 104/62 97.6 12/11/16 03:35 97.8 95 22 96/55 97.8 12/11/16 02:33 97.6 98 20 96/52 97.6 12/11/16 02:10 98.0 98 20 107/58 98.0 12/11/16 02:06 98.0 100 20 107/58 97 Nasal Cannula 2.0 98.0 12/10/16 22:21 98.0 102 24 121/70 94 Nasal Cannula 2.0 98.0 12/10/16 21:30 20 94 Nasal Cannula 2.0 12/10/16 20:28 26 94 Nasal Cannula 2.0 12/10/16 20:00 Nasal Cannula 2.0 12/10/16 19:52 Nasal Cannula 2.0 12/10/16 19:45 98.7 105 26 117/61 99 Nasal Cannula 2.0 98.7 12/10/16 15:43 Nasal Cannula 2.0 12/10/16 14:27 102 24 147/87 Nasal Cannula 3.0 12/10/16 08:00 Nasal Cannula 2.0 12/10/16 07:57 Nasal Cannula 2.0 12/10/16 07:55 100 24 153/80 94 Nasal Cannula 3.0 Laboratory Laboratory Laboratory Tests Test 12/10/16 18:36 12/10/16 21:26 12/10/16 23:00 12/11/16 07:38 Glucose (Fingerstick) 91mg/dL (70-99) 66mg/dL (70-99) 93mg/dL (70-99) 147mg/dL (70-99) Test 12/11/16 10:00 12/11/16 11:44 White Blood Count 12.0x10^3/uL (4.0-11.0) Red Blood Count 2.47x10^6/uL (4.30-5.70) Hemoglobin 7.4g/dL (13.0-17.5) Hematocrit 22.4% (39.0-53.0) Mean Corpuscular Volume 91fL (79-100) Mean Corpuscular Hemoglobin 30pg (25-35) Mean Corpuscular Hemoglobin Concent 33g/dL (31-37) Red Cell Distribution Width 17.6% (11.5-14.5) Platelet Count 57x10^3/uL (140-400) Neutrophils (%) (Auto) 73% (31-73) Lymphocytes (%) (Auto) 18% (24-48) Monocytes (%) (Auto) 9% (0-9) Eosinophils (%) (Auto) 0% (0-3) Basophils (%) (Auto) 0% (0-3) Neutrophils # (Auto) 8.8x10^3uL (1.8-7.7) Lymphocytes # (Auto) 2.1x10^3/uL (1.0-4.8) Monocytes # (Auto) 1.1x10^3/uL (0.0-1.1) Eosinophils # (Auto) 0.0x10^3/uL (0.0-0.7) Basophils # (Auto) 0.0x10^3/uL (0.0-0.2) Prothrombin Time 21.8SEC (11.7-14.0) Prothromb Time International Ratio 2.0 (0.8-1.1) Sodium Level 139mmol/L (136-145) Potassium Level 4.5mmol/L (3.5-5.1) Chloride Level 106mmol/L (98-107) Carbon Dioxide Level 21mmol/L (21-32) Anion Gap 12 (6-14) Blood Urea Nitrogen 50mg/dL (8-26) Creatinine 4.4mg/dL (0.7-1.3) Estimated GFR (Cockcroft-Gault) 16.2 BUN/Creatinine Ratio 11 (6-20) Glucose Level 146mg/dL (70-99) Lactic Acid Level 4.9mmol/L (0.4-2.0) Calcium Level 7.6mg/dL (8.5-10.1) Phosphorus Level 5.6mg/dL (2.6-4.7) Magnesium Level 2.0mg/dL (1.8-2.4) Total Bilirubin 1.3mg/dL (0.2-1.0) Aspartate Amino Transf (AST/SGOT) 71U/L (15-37) Alanine Aminotransferase (ALT/SGPT) 22U/L (16-63) Alkaline Phosphatase 72U/L (46-116) Ammonia 51mcmol/L (11-34) Total Protein 7.5g/dL (6.4-8.2) Albumin 1.6g/dL (3.4-5.0) Albumin/Globulin Ratio 0.3 (1.0-1.7) Glucose (Fingerstick) 144mg/dL (70-99) Microbiology 12/08/16 Blood Culture - Preliminary, Resulted NO GROWTH AFTER 3 DAYS 12/08/16 Urine Culture - Final, Complete 12/08/16 Urine Culture Result 1 (BERONICA) - Final, Complete 12/08/16 Antimicrobic Susceptibility - Final, Complete Medication Medications Current Medications Haloperidol Lactate (Haldol) 2.5 mg 1X ONCE IVP Last administered on 18:36; Start 12/10/16 at 19:00; Stop 12/10/16 at 19:01; Status DC Lorazepam 0.25 mg 0.25 mg PRN Q4HRS PRN IV ANXIETY / AGITATION Last administered on 12/11/16 13:02; Start 12/10/16 at 22:00 Phytonadione (Mephyton) 2.5 mg 1X ONCE PO Last administered on 12/10/16 22:35 ; Start 12/10/16 at 22:00; Stop 12/10/16 at 22:01; Status DC Sodium Acetate/ Potassium Chloride/ Potassium Phosphate/ Magnesium Sulfate/ Calcium Gluconate/ Multivitamins/ Minerals/Chromium/ Copper/Manganese/ Seleni/Zn /Total Parenteral Nutrition/Amino Acids/Dextrose/ Fat Emulsion Intravenous ( Potassium Phosphate/ Infuvite Mauro... 1,512 ml @ 63 mls/hr TPN CONT IV Last administered on 12/10/16t 21:45; Start 12/10/16 at 22:00; Stop 12/11/16 at 21:59 Sodium Acetate/ Potassium Chloride/ Potassium Phosphate/ Magnesium Sulfate/ Calcium Gluconate/ Multivitamins/ Minerals/Chromium/ Copper/Manganese/ Seleni/Zn /Total Parenteral Nutrition/Amino Acids/Dextrose/ Fat Emulsion Intravenous ( Potassium Phosphate/ Infuvite Mauro... 1,512 ml @ 63 mls/hr TPN CONT IV ; Start 12/11/16 at 22:00; Stop 12/12/16 at 21:59 Comment Review of Relevant I have reviewed the following items tyrel (where applicable) has been applied. NILO LEON MD Dec 11, 2016 14:06
[2016-12-11] MEDS ORDERED: LIDOCAINE 1% / SOD BICARB 8.4% 20 ML VIAL. IJ ONE ×2 (14:10→14:30)
--- NOTE | 2016-12-11 14:51 | PDOC ---
Exam Motion Picture Equipment Supervisor Motion Picture Equipment Supervisor Ángel Molder Floor Molder Floor Marnie Sloan Pre-Procedure Diagnosis Pre-Procedure Diagnosis 71 YO male with hypoxia, CHF, MONICA on CKD, hypoalbuminemia, pancreatic cancer, and large volume ascites. Post-Procedure Diagnosis Post-Procedure Diagnosis Same Procedure Performed Procedure Performed Sono guided Dx/Tx paracentesis Type of Anesthesia Type of Anesthesia Local only Estimated Blood Loss EBL: Trace Specimens Specimans 4000 cc straw-clear ascites removed---samples to lab per referring MD Condition of Patient Condition of Patient Stable. No apparent complication. Disposition Disposition From IR return to [facility]. F/U with Dr Rascon. Full report to follow. SWETA ESPINOSA MD Dec 11, 2016 14:51
[2016-12-11 18:36] LABS: BF CLARITY CLEAR; BF COLOR YELLOW
[2016-12-11] MEDS ORDERED: DEXTROSE 70% IV SCH ×10 (22:00)
[2016-12-11] MEDS ORDERED: TOTAL PARENTERAL NUTRITION IV SCH ×10 (22:00)
[2016-12-11] MEDS ORDERED: [UNRECOGNIZED DRUG - OTHER] IV SCH ×10 (22:00)
[2016-12-11] MEDS ORDERED: AMINO ACIDS IV SCH ×10 (22:00)
[2016-12-12 03:00] VITALS: BP 109/46
[2016-12-12] MEDS: LORAZEPAM 2 MG/ML VIAL IV PRN ×3 (03:59→14:48)
--- NOTE | 2016-12-12 07:17 | RAD ---
Ultrasound-guided diagnostic and therapeutic paracentesis Indication: 71-year-old male with hypoxia, acute kidney injury on chronic kidney disease, pancreatic cancer, hypoalbuminemia, congestive heart failure, and large volume ascites. Image guided diagnostic/therapeutic paracentesis has been requested. Anesthesia: Local only Procedure: Informed consent was obtained from the patient's . This procedure was performed in the angiography suite, with the patient in her hospital bed. Preliminary ultrasound examination confirmed the presence of a large volume of abdominal/pelvic ascites. A right abdominal peritoneal fluid collection, suitable for sono guided paracentesis, was selected, was marked, and was documented with a single hard copy ultrasound image. That area was then prepped and draped in the usual sterile fashion. Using aseptic technique, local anesthesia, and direct ultrasound guidance, a 21-gauge micropuncture needle was successfully introduced into the selected peritoneal fluid collection. The 21-gauge needle was exchanged over a microguidewire for a micropuncture sheath, which was, in turn, exchanged over a 0.035 inch guidewire for a 6 [place] drainage catheter. Approximately 4000 cc of straw-clear ascites was removed, samples which were submitted to the clinical laboratory per referring physician's request. The drainage catheter was then removed and a sterile dressing was applied. Patient tolerated the procedure well without apparent complication. Impression: Successful, uneventful ultrasound-guided diagnostic and therapeutic paracentesis, as described..
[2016-12-12] MEDS: INSULIN ASPART 300 UNITS/3 ML INSULN.PEN SQ SCH ×2 (07:30→08:00)
[2016-12-12 07:35] VITALS: BP 90/45
[2016-12-12] MEDS: IPRATRPIUM/ALBUTEROL 0.5/2.5MG 3 ML NEBU. NEB SCH (08:11)
[2016-12-12] MEDS ORDERED: MORPHINE SULFATE 20 MG/ML CONC SOLUTION. SL PRN (11:00)
[2016-12-12 11:20] VITALS: BP 120/51
--- NOTE | 2016-12-12 11:26 | PDOC ---
Objective: Objective: D/w RN - just gave Ativan for agitation. SW working on Hospice. Vital Signs: Vital Signs Date Time Temp Pulse Resp B/P Pulse Ox O2 Delivery O2 Flow Rate FiO2 12/12/16 08:11 Nasal Cannula 2.0 12/12/16 07:35 98.0 84 16 90/45 93 98.0 Labs: Laboratory Tests Test 12/11/16 11:44 12/11/16 14:25 12/11/16 17:21 12/11/16 20:51 Glucose (Fingerstick) 144mg/dL 151mg/dL 129mg/dL Body Fluid Source Ascites Body Fluid Color Yellow Body Fluid Clarity Clear Body Fluid Nucleated Cells 50/cmm Body Fluid Mononuclear WBCs (%) 65% Body Fluid Polymorphonuclear Cells 21% Body Fluid Total RBCs Counted 16/cmm Body Fluid Other Cells (%) 14% Test 12/12/16 09:00 Glucose (Fingerstick) 87mg/dL PE: GEN: NAD, sitting up in bed LUNGS: nasal cannula NEURO/PSYCH: does not respond when I speak (Ativan on board) A/P: Pancreatic cancer -low albumin, low hepatic reserve Ascites -s/p paracentesis 12/11 (4000cc) Hepatitis Confusion -- Seems working toward Hospice. CLAUDIA WOLF Dec 12, 2016 11:26
--- NOTE | 2016-12-12 15:33 | PDOC ---
PROGRESS NOTES Assessment Assessment Metabolic encephalopathy. CHF UTI Pancreatic cancer, s/p chemo. 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 RECOMMENDATIONS/PLAN: Continue ASA daily. Treat medical diseases. EEG ordered on 12/11/16 but was unable to perform on him. Lab: see order. Family may want to go palliative care. HCT 12/09: No new findings except old CVA. PAST MEDICAL AND SURGICAL HISTORY: Please see H&P ALLERGY: Reviewed. MEDICATIONS: Refer to MAR REVIEW OF SYSTEMS: Constitutional: Malnutrition. Head: No recent traumatic brain or head injury. Skin: No edema, or rash. Ear: No infection, tinnitus. Eyes: No vision loss, or diplopia. Nose: No bleeding or purulent discharges. Hearing: Hearing decrease. Neck: No injury. Cardiac: No ID, arrhythmia Pulmonary: No COPD. GI: Pancreatic cancer. Urinary/genital: UTI. Endocrine: Diabetes Mellitus. Skeletomuscular: No muscular atrophy, deformity. Neurological: see HP. Psychiatric: Denies current drug use/abuse. Otherwise, not [id number] review of systems. PHYSICAL EXAMINATION: General appearance is lethargic. HEENT: Normocephalic and nontraumatic. Eyes, nose, ears, and throat are unremarkable. Neck is supple. No lymphadenopathy. No bruits are heard over the carotid artery. No Crepitus. Cardiovascular: S1, S2, regular rate and rhythm. Pulmonary: relative clear to auscultation bilaterally. Abdomen: Bowel sounds are positive. Extremities: No rash, lesions, or edema. No restriction of range of motion NEUROLOGICAL EXAMINATION: Lethargic Unable to communicate nor follow commands. Not oriented to time, place and person. PERRL. EOMI not elicited due to decreased mentation. CN: no focal findings. Muscle tone: fluctuated. Muscle strength: 4- DTR: 1-2 Plantar reflex: Neutral response bilaterally Gait: not examined in bed. Sensory exam: not able to follow commands. Not able to access cerebellar signs elicited. Objective Objective Vital Signs Date Time Temp Pulse Resp B/P Pulse Ox O2 Delivery O2 Flow Rate FiO2 12/12/16 14:42 22 92 Nasal Cannula 4.0 12/12/16 11:20 97.3 71 120/51 97.3 Intake and Output 12/12/16 07:00 Intake Total 0 ml Output Total 4000 ml Balance -4000 ml Intake Oral 0 ml Estimated Blood Loss 4000 ml Vitals Signs Vitals VS - Last 72 Hours, by Label Date Time Temp Pulse Resp B/P Pulse Ox O2 Delivery O2 Flow Rate FiO2 12/12/16 14:42 22 92 Nasal Cannula 4.0 12/12/16 13:19 22 92 Nasal Cannula 4.0 12/12/16 11:50 Nasal Cannula 2.0 12/12/16 11:20 97.3 71 16 120/51 92 Nasal Cannula 4.0 97.3 12/12/16 08:11 Nasal Cannula 2.0 12/12/16 08:00 Nasal Cannula 4.0 12/12/16 07:35 98.0 84 16 90/45 93 Nasal Cannula 4.0 98.0 12/12/16 03:00 97.9 88 23 109/46 95 Simple Mask 6.0 97.9 12/11/16 23:00 97.5 84 20 98/48 95 Nasal Cannula 2.0 97.5 12/11/16 20:05 Nasal Cannula 2.0 12/11/16 19:20 99 Nasal Cannula 2.0 12/11/16 19:20 97.7 90 26 130/61 99 Nasal Cannula 2.0 97.7 12/11/16 15:23 Nasal Cannula 2.0 12/11/16 15:00 84 16 136/53 Nasal Cannula 2.0 12/11/16 11:28 96 Nasal Cannula 2.0 12/11/16 10:45 97.6 83 17 99/56 Nasal Cannula 97.6 12/11/16 08:59 97.5 71 12 90/54 97.5 12/11/16 08:00 Nasal Cannula 2.0 12/11/16 07:54 Nasal Cannula 2.0 12/11/16 07:00 97.7 89 16 103/59 96 Nasal Cannula 97.7 Laboratory Laboratory Laboratory Tests Test 12/11/16 17:21 12/11/16 20:51 12/12/16 09:00 Glucose (Fingerstick) 151mg/dL (70-99) 129mg/dL (70-99) 87mg/dL (70-99) Microbiology 12/08/16 Blood Culture - Preliminary, Resulted NO GROWTH AFTER 4 DAYS 12/11/16 Gram Stain - Final, Complete 12/08/16 Urine Culture - Final, Complete 12/08/16 Urine Culture Result 1 (BERONICA) - Final, Complete 12/08/16 Antimicrobic Susceptibility - Final, Complete Medication Medications Current Medications Morphine Sulfate (Roxanol Conc) 10 mg PRN Q2HRS PRN SL PAIN Last administered on 12/12/16t 13:19; Start 12/12/16 at 11:00 Sodium Acetate/ Potassium Chloride/ Potassium Phosphate/ Magnesium Sulfate/ Calcium Gluconate/ Multivitamins/ Minerals/Chromium/ Copper/Manganese/ Seleni/Zn /Total Parenteral Nutrition/Amino Acids/Dextrose/ Fat Emulsion Intravenous ( Potassium Phosphate/ Infuvite Mauro... 1,512 ml @ 63 mls/hr TPN CONT IV ; Start 12/11/16 at 22:00; Stop 12/11/16 at 22:00; Status DC Comment Review of Relevant I have reviewed the following items tyrel (where applicable) has been applied. NILO LEON MD Dec 12, 2016 15:33
--- NOTE | 2016-12-13 04:25 | DS ---
DATE OF DISCHARGE: 12/12/2016 HOSPITAL COURSE: This is a 71-year-old black male who came in because of ____hypoxia with a pulse oximetry. However, in the Emergency Room while on room air and an accurate pulse oximetry, it was more than 90%. Also, the blood gases were adequate. He was thus hospitalized to try to determine his oxygen requirements. He was noncooperative the first night. However, there after he was intermittently cooperative. He thereafter even with supposedly good wave form had oxygen saturations in the low 90s in the 80s on room air. He was placed on 2 liters of oxygen. His renal functions were poor with a creatinine of 4.4. He was on Lasix. A chest x-ray has shown improvement. I consider the fact that he may be dehydrated and placed him on IV fluids. With this, his creatinine dropped only to 3.4. His liver function tests that were totally abnormal before were totally normal now. However, upon talking to Dr. Victorino Paul it was noted that he might have cirrhosis because of the liver being small on CT scan and the spleen being big. Also, he had moderate ascites. He had had an echocardiogram done the last admission and a repeat one was not done. There is no good reason on the echocardiogram such as constrictive pericarditis to produce this amount of fluid. The ascites was thus felt to be due to either cirrhosis or malignancy. His INR was high, even though he was not given any anticoagulants during this hospitalization. After giving FFP and vitamin K, paracentesis was done and 4000 mL of fluid was obtained and we await the cytology. He had a very low albumin of 1. His appetite was poor. He underwent a gastric emptying time and it was found to be prolonged and was placed on Reglan. However, during this hospitalization, he gradually became more and more combative and less and less aware of his surroundings. It came to the point when he was really very agitated and combative and was given ____. He did not at recognize me. Later, he did not even recognize his . I then talked to his about hospice. It was clear that even though his numbers had improved that his liver was really nonfunctional. Also, his CA19-[address] Espinal could not explain that. We found no evidence of metastasis, but contrast could not be given. Dr. Cardoso was called on consultation. A CT scan of the head was obtained which is also normal. He was not having any oral intake at all. He was placed on hospice. The TPN that had been initiated for a day or so was discontinued. His IV antibiotics were discontinued because he developed fever and leukocytosis and we thought that he might have pneumonia. His lactic acid was elevated. FINAL DIAGNOSES: 1. Acute sepsis. 2. Pneumonia. 3. Carcinoma of the pancreas with unknown metastasis. 4. Probable cirrhosis of the liver. 5. Severe hypoalbuminemia. 6. Gastroparesis. 7. Large ascites. 8. Bilateral pleural effusion. 9. Severe confusion 10. Acute renal failure. 11. Atrial flutter 12. Chronic diastolic congestive heart failure. 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 14. Severe protein-calorie malnutrition. MAYRA REYNOLDS MD DR: TYRA/martin JOB#: [id number] / [id number]
[2016-12-13 10:27] LABS: BODY FLUID ALBUMIN 0.4 g/dL (.)
--- NOTE | 2016-12-17 22:09 | PN ---
DATE: 12/11/2016 This patient was seen around 11 a.m. on 12/11/2016. However, this note is being dictated in the iridologist hours of 12/12/2016. This patient when hospitalized presented a puzzling scenario of improving numbers even though he was looking worse. It is as follows: 1. He had been known to show hepatitis B and hepatitis C and significantly abnormal liver functions tests in 10/2016. Now everything had improved including his bilirubin, AST and ALT. I requested consultation from GI to explain this. Dr. Paul did talk to me on the morning of 12/11/2016. He pointed out a few things. a. On the CT scan the liver was markedly shrunken suggesting cirrhosis and the spleen was enlarged. There were also varices. b. The INR was significantly elevated even though he was not on Coumadin or on Eliquis. c. The albumin was very, very low and the globulin was high which could not be accounted for just on poor dietary intake. This was also again another sign of cirrhosis. d. The ammonia level was elevated. e. There is definitely an ascites. This ascites could be only due to cirrhosis or to malignancy. He had had an echocardiogram that was not significantly abnormal but it certainly was not due to a cardiac cause. Ascites because of either cirrhosis or malignancy carries a much worse prognosis than being due to a cardiac cause. 1. Thus, even though the liver function tests had improved, the liver was significantly nonfunctional. 2. He has severe chronic kidney disease. The creatinine seemed to improve a little bit with IV fluids and draining the bladder but then it went up again stating that kidney functions are only going to get worse. 3. The drop in CA [address] was difficult to explain. Dr. Espinal did not have a good explanation for it. We could not give him iodine and so CT of the chest, abdomen and pelvis continued to show no evidence of metastasis. Unfortunately, he could not also have an MRI. Finally a paracentesis was done on 12/11/2016 and I was told that 4000 mL was removed. We will get the results of it and that may or may not show malignant cells because even in the presence of malignancy, cytology can be negative. Taking all this into consideration, it was clear that he is a candidate for hospice. As I stated in my history and physical when I approached the concept of hospice in October, both the patient and the did not want to entertain that concept. The patient distinctly told me, "I would like not to go into hospice but doctor I am not an idiot, once it is clear that the cancer is really getting the better of me, I will go into hospice." I honor that request and let him be for a month. I talked to the in my office this afternoon. She was agreeable. He was thus placed on hospice. She requested that he go to hospice house because she would not be able to take care of him at home. I called Mayte, the social media director and requested her to place him in hospice with an agency that would be able to take him into hospice house. I am not sure how long he will survive. I am going to be discontinuing his IV fluids and antibiotics. We will transfer him out of telemetry, keep ____ with IV Ativan through his port and oxygen supplements. MAYRA REYNOLDS MD DR: TYRA/martin JOB#: [id number] / [id number]
--- NOTE | 2017-01-04 08:39 | DS ---
DATE OF DISCHARGE: 12/12/2016 ADDENDUM FINAL DIAGNOSIS: Large ascites. Thoracentesis was done and 4000 mL were obtained. Cytology was suggestive of malignancy. Thus, this is a malignant ascites. MAYRA REYNOLDS MD DR: TYRA/martin JOB#: [id number] / [id number]
== END 2016-12-12 15:30 | disposition expired | DRG 435 ==
LOC: ER 17:04 → 5 NORTH 18:45 → 2 SOUTH 12-06 09:00 → 6 SOUTH 12-11 21:54
PROVIDERS: ADMIT Specialist; ATTEND Specialist
PROC: 30233L1 Transfusion of Nonautologous Fresh Plasma into Peripheral Vein, Percutaneous Approach (ICD-10-PCS; principal; 2016-12-11)
PROC: 30233R1 Transfusion of Nonautologous Platelets into Peripheral Vein, Percutaneous Approach (ICD-10-PCS; 2016-12-11)
PROC: 30233K1 Transfusion of Nonautologous Frozen Plasma into Peripheral Vein, Percutaneous Approach (ICD-10-PCS; 2016-12-11)
PROC: 0W9G3ZX Drainage of Peritoneal Cavity, Percutaneous Approach, Diagnostic (ICD-10-PCS; 2016-12-11)
DX: C25.9 Malignant neoplasm of pancreas, unspecified (principal); A41.9 Sepsis, unspecified organism; E43 Unspecified severe protein-calorie malnutrition; G93.41 Metabolic encephalopathy; J18.9 Pneumonia, unspecified organism; J96.01 Acute respiratory failure with hypoxia; C79.9 Secondary malignant neoplasm of unspecified site; B18.1 Chronic viral hepatitis B without delta-agent; I13.0 Hypertensive heart and chronic kidney disease with heart failure and stage 1 through stage 4 chronic kidney disease, or unspecified chronic kidney disease; I42.9 Cardiomyopathy, unspecified; I48.92 Unspecified atrial flutter; D68.2 Hereditary deficiency of other clotting factors; J44.0 Chronic obstructive pulmonary disease with (acute) lower respiratory infection; N17.9 Acute kidney failure, unspecified; N18.4 Chronic kidney disease, stage 4 (severe); N39.0 Urinary tract infection, site not specified; I50.32 Chronic diastolic (congestive) heart failure; R18.0 Malignant ascites; Z51.5 Encounter for palliative care; K74.60 Unspecified cirrhosis of liver; B19.20 Unspecified viral hepatitis C without hepatic coma; D69.6 Thrombocytopenia, unspecified; E11.43 Type 2 diabetes mellitus with diabetic autonomic (poly)neuropathy; E78.00 Pure hypercholesterolemia, unspecified; E78.5 Hyperlipidemia, unspecified; E11.22 Type 2 diabetes mellitus with diabetic chronic kidney disease; F41.9 Anxiety disorder, unspecified; D64.9 Anemia, unspecified; K76.9 Liver disease, unspecified; K30 Functional dyspepsia; R79.89 Other specified abnormal findings of blood chemistry; G89.29 Other chronic pain; I25.10 Atherosclerotic heart disease of native coronary artery without angina pectoris; H70.90 Unspecified mastoiditis, unspecified ear; I48.91 Unspecified atrial fibrillation; F17.200 Nicotine dependence, unspecified, uncomplicated; J84.10 Pulmonary fibrosis, unspecified; K21.9 Gastro-esophageal reflux disease without esophagitis; K31.84 Gastroparesis; K59.00 Constipation, unspecified; N28.1 Cyst of kidney, acquired; Z82.49 Family history of ischemic heart disease and other diseases of the circulatory system; Z85.07 Personal history of malignant neoplasm of pancreas; Z85.118 Personal history of other malignant neoplasm of bronchus and lung; Z79.891 Long term (current) use of opiate analgesic; Z86.73 Personal history of transient ischemic attack (TIA), and cerebral infarction without residual deficits; Z90.49 Acquired absence of other specified parts of digestive tract; Z92.21 Personal history of antineoplastic chemotherapy; Z95.0 Presence of cardiac pacemaker; I25.2 Old myocardial infarction; Z95.1 Presence of aortocoronary bypass graft; V89.2XXA Person injured in unspecified motor-vehicle accident, traffic, initial encounter
CPT/HCPCS: 36415; 36600; 49083; 70450; 71010; 71250; 74176; 76700; 78264; 80048; 80053; 80074; 81001; 82042; 82140; 82805; 82947; 83605; 83615; 83735; 83880; 84100; 84134; 84145; 84484; 85027; 85610; 85730; 86301; 86850; 86900; 86901; 86927; 87040; 87071; 87075; 87086; 87186; 87205; 87804; 88112; 88305; 88341; 88342; 89050; 93005; 93306; 94250; 94640; 94760; 96374; A4215; A9541; C1729; C1892; C1894; J0610; J1630; J1815; J1940; J2060; J2185; J2543; J3475; J7030; J7042; J7620; J8597; P9017; P9041; P9046; Q0167; Q9966; 99285-25; G0641

== ENCOUNTER 2016-12-12 16:03 | Emergency (ER) | payer MEDICARE, OTHER ==
[~2016-12-12] VITALS: Ht 170.2 cm; Wt 74.8 kg
[2016-12-12 11:20] VITALS: BP 120/51
--- NOTE | 2016-12-12 18:33 | PHYS DOC ---
Past Medical History Past Medical History: Anemia, Anxiety, Cancer, Diabetes-Type II, GERD, High Cholesterol, Hypertension, Other Additional Past Medical Histor: pancreatic cancer. Past Surgical History: Cholecystectomy, Coronary Bypass Surgery, Other Additional Past Surgical Histo: Rebuilt pancreas. Alcohol Use: None Drug Use: None Adult General Chief Complaint Chief Complaint: OTHER COMPLAINTS HPI HPI 71-year-old male who presented in complete cardiac arrest with a known DNR in place. Per EMS, they found the patient to the be apneic and initiated CPR until a valid DNR order was discovered. He had history of Stage IV pancreatic cancer and was in the process of entering hospice care. Pt arrives with no pulse and completely unresponsive. Review of Systems Review of Systems A 10 point ROS of is unable to be obtained secondary to the patient's underlying mental status. Allergies Allergies Allergies Coded Allergies Type Severity Reaction Last Updated Verified codeine Allergy Intermediate AMS 10/25/16 Yes Physical Exam Physical Exam Constitutional: Unresponsive. [] HENT: Normocephalic, atraumatic, bilateral external ears normal, oropharynx moist, no oral exudates, nose normal. [] Eyes: Pupils fixed and unreactive, conjunctiva normal, no discharge. [] Neck: Normal range of motion, no tenderness, supple, no stridor. [] Cardiovascular:Pulseless [] Lungs & Thorax: No spontaneous breaths, no active chest wall motion [] Abdomen: Bowel sounds decreased, soft, no obvious masses, no pulsatile masses. [ ] Skin: Warm, dry, no erythema, no rash, pale. [] Extremities: No cyanosis, no clubbing, ROM intact, no edema. [] Current Patient Data Vital Signs Vital Signs Date Time Temp Pulse Resp B/P Pulse Ox O2 Delivery O2 Flow Rate FiO2 12/12/16 16:03 0 0 EKG EKG [] Radiology/Procedures Radiology/Procedures [] Course & Med Decision Making Course & Med Decision Making Pertinent Labs and Imaging studies reviewed. (See chart for details) This patient arrived pulseless with a DNR in place and so no resuscitation attempts were made. A [id number] ultrasound demonstrated complete cardiac standstill. The family was appropriately updated. Dr. Rascon agreed to sign the patient's certificate. Dragon Disclaimer Dragon Disclaimer This electronic medical record was generated, in whole or in part, using a voice recognition dictation system. Departure Departure Referrals: LEISA MIJARES MD (PCP) MAURICE SCOTT DO Dec 12, 2016 18:33
== END 2016-12-12 17:45 | disposition expired ==
LOC: ER 16:03
DX: I46.9 Cardiac arrest, cause unspecified (principal); F41.9 Anxiety disorder, unspecified; E11.9 Type 2 diabetes mellitus without complications; K21.9 Gastro-esophageal reflux disease without esophagitis; E78.00 Pure hypercholesterolemia, unspecified; I10 Essential (primary) hypertension; Z66 Do not resuscitate; Z95.1 Presence of aortocoronary bypass graft; Z90.49 Acquired absence of other specified parts of digestive tract; Z88.5 Allergy status to narcotic agent
CPT/HCPCS: 99285